=== PATIENT | female | born 1990 | race Caucasian/White ===

== ENCOUNTER 2021-02-17 03:48 | Emergency (ER) | payer MEDICAID, SELFPAY ==
[2021-02-17 03:50] VITALS: BP 104/70; PULSE 99; RESP 21; O2SAT 97; BMI 24.0
[2021-02-17 04:30] VITALS: BP 104/70; PULSE 102; O2SAT 96
--- NOTE | 2021-02-17 04:42 | CT_ITS ---
PROCEDURE INFORMATION: Exam: CT Abdomen And Pelvis With Contrast Exam date and time: 02/17/2021 4:42 AM Age: 30 years old Clinical indication: Other: Covid; Additional info: Covid, epigastric pain TECHNIQUE: Imaging protocol: Computed tomography of the abdomen and pelvis with contrast. Radiation optimization: All CT scans at this facility use at least one of these dose optimization techniques: automated exposure control; mA and/or kV adjustment per patient size (includes targeted exams where dose is matched to clinical indication); or iterative reconstruction. Contrast material: ISOVUE; Contrast volume: 70 ml; Contrast route: IV; COMPARISON: ABDPELW/O CT ABD PELVIS W/O CONTRAST 04/04/2017 1:36 PM FINDINGS: Lungs: See chest CT report for additional details. Liver: Few hypodense lesions, up to 2.3 cm, indeterminate by CT criteria. Gallbladder and bile ducts: No calcified stones. No ductal dilation. Pancreas: Unremarkable. No ductal dilation. Spleen: No splenomegaly. Adrenal glands: No mass. Kidneys and ureters: Several too small to characterize lesions within kidneys (<1 cm). Probable 1.2 cm RIGHT renal cyst. 1.0 lesion within RIGHT kidney, indeterminate by CT criteria. Few punctate calculi within kidneys. No significant hydronephrosis. Stomach and bowel: No definite mural thickening. No obstruction. Appendix: Appendectomy. Intraperitoneal space: No significant fluid collection. No definite free air. Vasculature: Retroaortic LEFT renal vein. No aneurysm. Lymph nodes: No pathologically enlarged lymph nodes. Urinary bladder: Unremarkable. Reproductive: IUD. Bones/joints: 0.7 cm spiculated sclerotic lesion within LEFT ilium, new in interval. No acute fracture. Soft tissues: Unremarkable. IMPRESSION: 1. No definite acute intraabdominal abnormality. 2. Liver lesions, incompletely characterized. Recommend nonemergent MRI. 3. RIGHT kidney lesion, incompletely characterized. Recommend nonemergent MRI. 4. Sclerotic lesion within pelvis, indeterminate. Recommend nonemergent bone scan. COMMENTS: Consistent with the [employer]'s Incidental Findings Committee white paper (J Am Christine Radiol 2018): Any incidental renal lesion less than 1 cm or classified as too small to characterize, or any incidental cystic renal lesion characterized as simple-appearing, is likely benign. No follow-up imaging is recommended for these lesions per consensus recommendations based on imaging criteria.
--- NOTE | 2021-02-17 04:42 | CT_ITS ---
PROCEDURE INFORMATION: Exam: CTA Chest With Contrast Exam date and time: 02/17/2021 4:42 AM Age: 30 years old Clinical indication: Cough and shortness of breath; Additional info: Covid, SOA, cough TECHNIQUE: Imaging protocol: Computed tomographic angiography of the chest with contrast. 3D rendering (Not supervised by radiologist): None. Radiation optimization: All CT scans at this facility use at least one of these dose optimization techniques: automated exposure control; mA and/or kV adjustment per patient size (includes targeted exams where dose is matched to clinical indication); or iterative reconstruction. Contrast material: ISO 370; Contrast volume: 70 ml; Contrast route: INTRAVENOUS (IV); COMPARISON: CR CXR2V XR chest 2V 07/12/2018 1:39 PM FINDINGS: Pulmonary arteries: No pulmonary embolism. Aorta: Unremarkable. No aneurysm. Thyroid: Few subcentimeter nodules. Lungs: No consolidation. Pleural spaces: Trace to small bilateral pleural effusions. No pneumothorax. Heart: No cardiomegaly. No pericardial effusion. Lymph nodes: No pathologically enlarged lymph nodes. Bones/joints: No acute fracture. Soft tissues: Unremarkable. Upper abdomen: See abdomen CT report for additional details. IMPRESSION: No CT evidence of pulmonary embolism. COMMENTS: Consistent with the [employer]'s Incidental Findings Committee white paper (J Am Christine Radiol 2015): In patients under 35 years old with an incidental thyroid nodule equal to or greater than [address], MRI or extrathyroidal US, further evaluation with dedicated thyroid US is recommended for patients with normal life expectancy and without comorbidities. For smaller nodules without suspicious features, no further evaluation or follow up is recommended.
[2021-02-17 04:49] LABS: Basophils # 0.1 K/mm3 (0-0.2); Basophils % 0.7 % (0.1-2.0); Eosinophils % 0.4 % (0.1-12.0); Hemoglobin 13.7 g/dL (12.2-16.2); Lymphocytes # 1.8 K/mm3 (0.7-4.5); Lymphocytes % 22.3 % (10-50); Mean Corpuscular HGB Conc 34.3 g/dL (31.8-35.4); Mean Corpuscular Hemoglobin 29.8 pg (27.0-31.2); Mean Corpuscular Volume 86.9 fl (81-99); Mean Platelet Volume 7.9 fl (7.4-10.4); Monocytes # 0.6 K/mm3 (0.1-1.0); Monocytes % 7.3 % (1.7-9.3); Neutrophils # 5.6 K/mm3 (1.8-7.8); Neutrophils % 69.3 % (37.0-80.0); Platelet Count 241 K/mm3 (142-424); Red Cell Distribution Width 13.1 % (11.5-17.5); White Blood Count 8.1 K/mm3 (4.8-10.8)
[2021-02-17 04:55] LABS: Alanine Aminotransferase 25 U/L (12-78); Albumin/Globulin Ratio 1.5 (1.1-1.8); Alkaline Phosphatase 67 U/L (38-126); Amylase 35 U/L (30-110); Anion Gap 14.2 mEq/L (5-15); Aspartate Amino Transferase 26 U/L (14-36); Bilirubin,Total 0.5 mg/dl (0.2-1.3); Blood Urea Nitrogen 4 mg/dl (7-17); Calcium 8.1 mg/dl (8.4-10.2); Carbon Dioxide 24 mmol/L (22.0-30.0); Chloride 104 mmol/L (98-107); Creatinine Clearance Estimated 134 mL/min (50-200); Estimated Glomerular Filt Rate 117 ml/min (>60); GFR (African American) 142 ML/MIN (>60); Globulin 2.7 g/dL (1.3-3.2); Glucose 126 mg/dl (74-100); Lipase 25 U/L (23-300); Potassium 3.2 mmoL/L (3.5-5.1); Sodium 139 mmol/L (136-145); Total Protein,Serum 6.7 g/dl (6.3-8.2)
[2021-02-17 04:58] LABS: HCG Qualitative, Serum Negative (Negative)
[2021-02-17 05:00] VITALS: BP 111/78; PULSE 97; O2SAT 99
[2021-02-17 05:00] LABS: C-Reactive Protein 44.9 mg/L (0-4)
[2021-02-17 05:35] VITALS: BP 106/73; PULSE 90; O2SAT 100
[2021-02-17 06:02] LABS: Erythrocyte Sedimentation Rate 46 mm/hr (0-20)
--- NOTE | 2021-02-17 06:35 | [facility].EDSOB ---
ED Disposition Clinical Impression: COVID-19 Disposition: Home, Self-Care Condition on Discharge: Good Instructions: DI for COVID-19 (Suspected or Confirmed ) Additional Instructions: fluids and call pcp this am Referrals: Rubia Hoover [Primary Care Provider] - - Critical Care Critical Care Time: No Attestation: On 02/17/21, the high probability of a clinically significant, sudden or life threatening deterioration of the following system(s) required my full and direct attention, intervention and personal management. The time I documented below is in addition to time spent performing reported procedures but includes the following listed in this critical care notation. Medical Decision Making - Medical Records Medical records reviewed: Yes: I reviewed the patient's medical records. - Emile Inquiry Pt receiving controlled substance: No Vital Signs: 02/17/21 03:50 02/17/21 04:30 02/17/21 05:00 Temperature Source Oral Pulse Rate 102 H 97 H Pulse Rate [Right] 99 H Respiratory Rate 21 Blood Pressure 104/70 L 111/78 Blood Pressure [Right Arm] 104/70 L Blood Pressure Mean [Right Arm] 81 Blood Pressure Source [Right Arm] Automatic Cuff 02 Sat by Pulse Oximetry 97 96 99 Oxygen Delivery Method Room Air Room Air Room Air 02/17/21 05:35 Temperature Source Pulse Rate 90 Pulse Rate [Right] Respiratory Rate Blood Pressure 106/73 L Blood Pressure [Right Arm] Blood Pressure Mean [Right Arm] Blood Pressure Source [Right Arm] 02 Sat by Pulse Oximetry 100 Oxygen Delivery Method Room Air - Lab Data Lab results reviewed: Yes: I reviewed the patient's lab results. Lab Results 02/17/21 04:20: WBC 8.1, RBC 4.60, Hgb 13.7, Hct 40.0, MCV 86.9, MCH 29.8, MCHC 34.3, RDW 13.1, Plt Count 241, MPV 7.9, Neut % (Auto) 69.3, Lymph % (Auto) 22.3, Gilmer % (Auto) 7.3, Eos % (Auto) 0.4, Baso % (Auto) 0.7, Neut # (Auto) 5.6, Lymph # (Auto) 1.8, Gilmer # (Auto) 0.6, Eos # (Auto) 0.0, Baso # (Auto) 0.1, ESR 46 H 02/17/21 04:20: Sodium 139, Potassium 3.2 L, Chloride 104, Carbon Dioxide 24, Anion Gap 14.2, BUN 4 L, Creatinine 0.60, Estimated Creat Clear 134, Estimated GFR 117, Est GFR ( Amer) 142, Glucose 126 H, Calcium 8.1 L, Total Bilirubin 0.5, AST 26, ALT 25, Alkaline Phosphatase 67, C-Reactive Protein 44.9 H, Total Protein 6.7, Albumin 4.0, Globulin 2.7, Albumin/Globulin Ratio 1.5, Amylase 35, Lipase 25, Procalcitonin 0.040 02/17/21 04:20: Serum HCG, Qual Negative Result diagrams: 02/17/21 04:20 02/17/21 04:20 Orders (Tests/Meds): ED MEDICATIONS Generic Name Dose Route Start Last Admin Trade Name Freq PRN Reason Stop Dose Admin Sodium Chloride 1,000 mls @ 999 mls/hr 02/17/21 04:45 02/17/21 04:30 Sod Chlor 0.9% 1000ml Bag IV 02/17/21 05:45 999 mls/hr .Q1H1M KAILA Administration Discontinued Medications Generic Name Dose Route Start Last Admin Trade Name Freq PRN Reason Stop Dose Admin Dexamethasone Sodium Phosphate 10 mg 02/17/21 04:43 02/17/21 05:15 Dexamethasone 4mg/Ml 5ml Mdv IV 02/17/21 04:44 10 mg ONCE ONE Administration Iopamidol 70 ml 02/17/21 05:41 02/17/21 05:42 Iopamidol-370 (76%);100ml Bottle IV 02/17/21 05:42 70 ml ONCE ONE Administration Ondansetron HCl 4 mg 02/17/21 04:43 02/17/21 05:15 Ondansetron 4mg/2ml Vial IV 02/17/21 04:44 4 mg ONCE ONE Administration Sodium Chloride 50 ml 02/17/21 05:41 02/17/21 05:42 0.9 % Sodium Chloride 50 Ml Vial IV 02/17/21 05:42 50 ml ONCE ONE Administration Sodium Chloride 10 ml 02/17/21 05:41 02/17/21 05:42 Sodium Chloride 0.9% 10ml Syr (Rad Only) IV 02/17/21 05:42 10 ml ONCE ONE Administration ORDERS Category Date Time Status Urinalysis and Microscopic Stat Lab 02/17/21 04:42 Ordered - CT Data CT Scan: Abdomen, Pelvis, Chest Time Received: 06:[address] Reviewed: Yes: I have viewed the radiologist's interpretation Preliminary Findings: Normal/NAD Medical
[2021-02-17 06:42] VITALS: BP 97/60; PULSE 86; RESP 17; TEMP 36.8; O2SAT 96
[2021-02-17 06:51] LABS: Appearance,Urine SL CLOUDY (Clear); Bilirubin,Urine Negative (Negative); Blood, Urine 2+ (Negative); Color,Urine ORANGE (Yellow); Glucose,Urine (UA) Negative (Negative); Ketones,Urine Negative (Negative); Leukocyte Esterase,Urine 3+ (Negative); Microscopic, Urine URINE MICROSCOPIC (MICROSCOPIC); Nitrate,Urine POSITIVE (Negative); PH,Urine 6.5 (5.0-8.5); Protein,Urine 2+ (Negative)
[2021-02-17 06:57] LABS: Bacteria,Urine 1+ /lpf
== END 2021-02-17 06:53 | disposition home or self-care (01) ==
PROVIDERS: Emergency Provider Emergency Medicine; PCP Nurse Practitioner Family
DX: U07.1 COVID-19 (principal)
CPT/HCPCS: 71275; 74177; 80053; 81001; 82150; 83690; 84145; 84703; 85025; 85651; 86140; 87086; 96365; 96375; 99283; J2405; Q9967

== ENCOUNTER 2025-01-10 15:55 | Emergency (ER) | payer BC, SELFPAY ==
--- OUTSIDE RECORDS SUMMARY | 2024-11-26 12:40 | XMS_ITS | Encounter Summary ---
Author Organization [facility] Address [address] [place] [address] Care Team Providers Care Mobile Disc Jockey Name Role Phone Lisseth Rivera MD Primary Care Provider [phone] Reason for Visit * Reason Comments Rectal Bleeding Headache X 2 days Encounter Details Date Type Department Care Team (Late st Contact Info) Description 11/26/2024 12:40 PM EDT Office Visit [facility] [address] [place] [address] Kasey Mckenzie, ASSEMBL[employer], DNP [address] [place] [address] Other fatigue (Primary Dx); Blood in stool; Anal fissure; Allergic rhinitis, unspecified seasonality, unspecified trigger Social History Tobacco Use Types Packs/Day Years Used Date Smoking Tobacco: Never Passive Smoke Exposure: Never Smokeless Tobacco: Never Tobacco Cessation:Counseling Given: Not Answered Alcohol Use Standard Drinks/Week Comments No 0 (1 standard drink = 0.6 oz pur e alcohol) Humiliation, Afraid, Rape, and Kick questionnair e Answer Date Recorded Within the last year, have y ou been afraid of your partner or ex-partner? No 11/26/2024 Within the last year, have y ou been humiliated or emotionally abused in other ways by your partner or ex-partner? No Within the last year, have y ou been kicked, hit, slapped, or otherwise physically hurt by your partner or ex-partner? No 11/26/2024 Within the last year, have y ou been raped or forced to have any kind of sexual activity by your partner or ex-partner? No 11/26/2024 PHQ-2 Answer Date Recorded Patient Health Questionnaire-2 Score 3 08/15/2024 Hunger Vital Sign Answer Date Recorded Within the past 12 months, y ou worried that your food would run out before you got the money to buy more. Never true 11/27/19 25 Within the past 12 months, t he food you bought just didn't last and you didn't have money to get more. Never true 11/26/2024 PRAPARE - Transportation Answer Date Re corded In the past 12 months, has l ack of transportation kept you from medical appointments or from getting medications? No 11/08 In the past 12 months, has l ack of transportation kept you from meetings, work, or from getting things needed for daily living? No 11/26/2024 Housing Stability Vital Sign Answer Collin e Recorded In the last 12 months, was t here a time when you were not able to pay the mortgage or rent on time? No 02/29/2024 In the last 12 months, how many places have you lived? 1 02/29/2024 In the last 12 months, was t here a time when you did not have a steady place to sleep or slept in a prison (including now)? No 02/29/2024 PHQ-9 Answer Date Recorded Patient Health Questionnaire-9 Score 9 08/15/2024 Housing Stability Vital Sign Answer Collin e Recorded In the last 12 months, was t here a time when you were not able to pay the mortgage or rent on time? No 11/26/2024 In the past 12 months, how m any times have you moved where you were living? 0 11/26/2024 At any time in the past 12 m [facility], were you homeless or living in a prison (including now)? No 11/26/2024 Utilities Answer Date Recorded In the past 12 months has th e electric, gas, oil, or water company threatened to shut off services in your home? No 11/26/2024 Comments No Sex and Gender Information Value Date Recorded Sex Assigned at Not on file Legal Sex Female 7:52 PM EDT Gender Identity Not on file Sexual Orientation Not on file documented as of this encounter Last Filed Vital Signs Vital Sign Reading Time Taken Comments Blood Pressure 116/80 11/26/2024 12:41 PM EDT Pulse 88 11/26/2024 12:41 PM EDT Temperature 37 C (98.6 F) 11/26/2024 12:41 PM EDT Respiratory Rate 14 11/26/2024 12:41 PM EDT Oxygen Saturation 99% 11/26/2024 12:41 PM EDT Inhaled Oxygen Concentration - - Weight 74.1 kg (163 lb 5.8 oz) 11/26/2024 12:41 PM EDT Height 160 cm (5' 3 ) 11/26/2024 12:41 PM EDT Body Mass Index 28.94 11/26/2024 12:41 PM EDT documented in this encounter Functional Status * Calculated C-SSRS Risk Score (Lifetime/Recent) Answer Date of Assessment Author No Risk Indicated 11/26/2024 12:42 PM EDT Mala Hoover * Question Answer Date of Assessment Author 1. Wish to be (Past 1 Month) No 025 12:42 PM EDT Mala Hoover 2. Non-Specific Active Suici sam Thoughts (Past 1 Month) No 11/26/2024 12:42 PM EDT Mala Hoover 6. Suicidal Behavior (Lifetime) No 12:42 PM EDT Mala Hoover documented as of this encounter Miscellaneous Notes * Progress Notes - Kasey Mckenzie, ASSEMBLER [employer], DNP - 11/26/2024 12:40 PM EDT Subjective VyYadira Foster Rectal Bleeding Associated symptoms include headaches. Headache Ms. Foster says she had knee surgery and has had congestion since then. Patient says her knee surgery was november 12. Patient denies body aches, chills, or fever. Patient has had nasal congestion and post nasal drip. Patient has been using claritin. Patient says that she has been fatigued since surgery. She is concerned maybe her thyroid is off. Patient has been taking more naps than normal. Patient says she has had headache last two days. Patient says yesterday she had a bowel movement and had blood in her stool. Patient says she is bleeding from rectum. Patient denies issues with constipation. Patient denies large bowel movement that could have triggered. Patient does not complain of itching.Patient denies any pain in area. Medical History[1] Family History[2] Surgical History[3] Social History Socioeconomic History Marital status: Single Spouse name: Not on file Number of children: Not on file Years of education: Not on file Highest education level: Not on file Occupational History Not on file Tobacco Use Smoking status: Never Passive exposure: Never Smokeless tobacco: Never Vaping Use Vaping status: Never Used Substance and Sexual Activity Alcohol use: No Drug use: Never Comment: Drug use: No drug use Sexual activity: Yes Partners: Male control/protection: Female Sterilization Comment: Tubal removal Other Topics Concern Not on file Social History Narrative Not on file Social Drivers of Health Financial Resource Strain: Not on file Food Insecurity: No Food Insecurity (11/26/2024) Hunger Vital Sign Worried About Running Out of Food in the Last Year: Never true Ran Out of Food in the Last Year: Never true Transportation Needs: No Transportation Needs (11/26/2024) PRAPARE - Transportation Lack of Transportation (Medical): No Lack of Transportation (Non-Medical): No Physical Activity: Not on file Stress: Not on file (05/14/2024) Social Connections: Not on file Intimate Partner Violence: Not At Risk (11/26/2024) Humiliation, Afraid, Rape, and Kick questionnaire Fear of Current or Ex-Partner: No Emotionally Abused: No Physically Abused: No Sexually Abused: No Housing Stability: Low Risk (11/26/2024) Housing Stability Vital Sign Unable to Pay for Housing in the Last Year: No Number of Times Moved in the Last Year: 0 Homeless in the Last Year: No Medications Ordered Prior to Encounter[4] Allergies[5] Health Maintenance Due Topic Date Due UKY-Varicella Vaccines (1 of - 13+ 2-dose series) Never done [id number] Vaccine (2023- season) Never done The following portions of the patient's chart were reviewed in this encounter and updated as appropriate: past medical history, surgical history, family history, tobacco history, allergies, and medications A 14-point review of systems was completed with pertinent positives and negatives outlined above. Objective Vitals: 11/26/24 1241 BP: 116/80 Pulse: 88 Resp: 14 Temp: 37 ??C (98.6 ??F) SpO2: 99% Physical Exam Exam conducted with a warehouse driver present. Constitutional: Appearance: Normal appearance. Cardiovascular: Rate and Rhythm: Normal rate and regular rhythm. Pulses: Normal pulses. Heart sounds: Normal heart sounds. Pulmonary: Effort: Pulmonary effort is normal. Breath sounds: Normal breath sounds. Abdominal: General: Abdomen is flat. Bowel sounds are normal. Palpations: Abdomen is soft. Tenderness: There is no right CVA tenderness or left CVA tenderness. Genitourinary: Rectum: Anal fissure present. Comments: Blood from rectum Neurological: Mental Status: She is alert and oriented to person, place, and time. Psychiatric: Mood and Affect: Mood normal. Behavior: Behavior normal. Thought Content: Thought content normal. Judgment: Judgment normal. Assessment/Plan 1. Other fatigue (Primary) Will draw labs today to further evaluation. Will treat according to labs. - Comprehensive Metabolic Panel, Plasma - CBC and Differential - TSH - T4, free - Vitamin D 25 Hydroxy - Vitamin B12, Serum 2. Blood in stool Will check CBC. There is darien blood. I feel likely due to fissure. If blood persists will refer toGI for possible colonoscopy - Comprehensive Metabolic Panel, Plasma - CBC and Differential 3. Anal fissure Encouraged eating bland diet with fiber to prevent constipation. Patient may use sitz bath. If develops issues with constipation encouraged use of stool softener and increase hydration. 4. Allergic rhinitis, unspecified seasonality, unspecified trigger Educated on risks/benefits of medication. Will increase hydration. May use humidifier. - Chlorcyclizine-Pseudoephed (Stahist AD) 25-60 MG tablet; Take 1 tablet by mouth every 8 hours as needed (congestion) for up to 7 days. Dispense: 21 tablet; Refill: 0 - fluticasone (Flonase) 50 MCG/ACT nasal spray; Administer 1 spray into each nostril daily. Shake gently. Before first use, prime pump. After use, clean tip and replace cap. Dispense: 16 g; Refill: 0 Kasey Prateek Hollison, ASSEMBLER CON[employer], DOMITILA [1] Past Medical History: Diagnosis Date Anemia Anxiety Depression Ganglion, unspecified site Ganglion GERD (gastroesophageal reflux disease) Liver disease, unspecified Liver lesion, right lobe Personal history of other diseases of the digestive system History of chronic constipation Personal history of other diseases of the digestive system History of gastroesophageal reflux (GERD) Personal history of other diseases of urinary system History of pyelonephritis [2] Family History Problem Relation Name Age of Onset Cancer Mother Hannah Depression Mother Hannah Mental illness Mother Hannah Miscarriages / Stillbirths Mother Hannah Miscarriages / Stillbirths Sister Trudy Asthma Brother Jeff Bipolar disorder Other Colon cancer Other Hyperlipidemia Other Anesthesia problems Neg Hx Malig Hyperthermia Neg Hx [3] Past Surgical History: Procedure Laterality Date APPENDECTOMY N/A Appendectomy from [facility] BREAST LUMPECTOMY Right Right Breast Lumpectomy from [facility] KIDNEY SURGERY N/A Kidney Surgery from [facility] MYRINGOTOMY W/ TUBES N/A Ear Pressure Equalization Tube, Insertion from [facility] OTHER SURGICAL HISTORY N/A Laparoscopy (Diagnostic) from [facility] OTHER SURGICAL HISTORY N/A History of myringotomy from [facility] OTHER SURGICAL HISTORY right shoulder surgery TONSILLECTOMY N/A Tonsillectomy from [facility] TUBAL LIGATION Bilateral [4] Current Outpatient Medications on File Prior to Visit Medication Sig Dispense Refill acetaminophen (Tylenol Extra Strength) 500 MG tablet if needed. amitriptyline (Elavil) 25 MG tablet Take 1 tablet (25 mg) by mouth every night. 30 tablet 11 Aspirin Low Dose 81 MG EC tablet Take 1 tablet by mouth 1 time. cetirizine (EQ Allergy Relief, Cetirizine,) 10 MG tablet Take 1 tablet (10 mg) by mouth 1 (one) time each day. 90 tablet 2 levothyroxine (Synthroid) 100 MCG tablet Take 1 tablet (100 mcg) by mouth every morning. 30 tablet 3 naloxone (Narcan) 4 mg/0.1 mL nasal spray 1. Give 1 spray in nostril for no/slow breathing or cannot wake after opioid use 2. Call 911 3. Repeat in other nostril if symptoms continue 1 each 0 omeprazole (PriLOSEC) [address] capsule Take 1 capsule (20 mg) by mouth 1 (one) time each day. Do not crush or chew. 90 capsule 2 diphenhydrAMINE (Benadryl) 50 MG tablet Take one tablet 1 hour before contrast injection (Patient not taking: Reported on 11/26/2024) 1 tablet 0 ergocalciferol 1.25 MG (00107 UT) capsule Take 1 capsule by mouth once a week (Patient not taking: Reported on 11/26/2024) 4 capsule 0 ketoconazole (NIZOral) 2 % cream APPLY CREAM TOPICALLY TWICE DAILY FOR 28 DAYS (Patient not taking:Reported on 11/26/2024) 30 g 0 oxyCODONE (Roxicodone) 5 MG immediate release tablet Take 1 tablet (5 mg) by mouth every 6 (six) hours if needed for severe pain. (Patient not taking: Reported on 11/26/2024) 20 tablet 0 No current facility-administered medications on file prior to visit. [5] Allergies Allergen Reactions Cinnamon Anaphylaxis Iodinated Contrast Media Swelling and Vomiting Meperidine Hcl Vomiting Vomiting Aspirin Unknown - Patient states they do not know rxn details Ibuprofen Other - please document in the comment field and Unknown - Patient states they do not know rxn details patient reports tingling in hands and intolerance Iv Contrast Other - please document in the comment field Iodinated contrast- mouth swelling, vomiting Morphine And Codeine Unknown - Patient states they do not know rxn details Hives and itching Vancomycin Hcl Rash vancomycin - blisters documented in this encounter Plan of Treatment Upcoming Encounters Date Type Department Care Team (Late st Contact Info) Description 01/15/2025 9:00 AM EDT Office Visit [facility] [address] [place] [address] Lisseth Rivera MD [address] [place] [address] 02/19/2025 11:00 AM EDT Procedure Visit Obstetrics & Gynecology [address] [place] [address] Antonia Hugo APRN, CN [address] [place] [address] documented as of this encounter Procedures Procedure Name Priority Date/Time Associated Diagnosis Comments VITAMIN D 25 HYDROXY Routine 11/26/2024 1:33 PM EDT Other fatigue CBC WITH AUTO DIFFERENTIAL Routine 11/26/2024 1:33 PM EDT Other fatigue Blood in stool TSH Routine 11/26/2024 1:33 PM EDT Other fatigue FREE T4, PLASMA Routine 11/26/2024 1:33 PM EDT Other fatigue VITAMIN B12, SERUM Routine 11/26/2024 1: 33 PM EDT Other fatigue COMPREHENSIVE METABOLIC PANEL, PLASMA Routine 11/26/2024 1:33 PM EDT Other fatigue Blood in stool documented in this encounter Results * Vitamin B12, Serum (11/26/2024 1:33 PM EDT) Vitamin B12, Serum 487 210 - 1,033 pg/mL 11/26/2024 6:29 PM EDT [facility] Blood Venous blood specimen / Unknown Venipuncture / Unknown 11/26/2024 1:33 PM EDT 11/26/2024 1:33 PM EDT us Kasey Mckenzie APRN, DNP LAB BLOOD ORDERABLES Final Result [facility] [address] [place] [address] * Vitamin D 25 Hydroxy (11/26/2024 1:33 PM EDT) Vitamin D 25 Hydroxy 24.4 20.0 - 80.0 ng/mL 11/26/2024 6:56 PM EDT [facility] Blood Venous blood specimen / Unknown Venipuncture / Unknown 11/26/2024 1:33 PM EDT 11/26/2024 1:33 PM EDT Narrative [facility] - 11/26/2024 6:56 PM EDT Testing performed on [employer], standardized against NIST SRM 2972. When testing samples from patients whose predominant form of vitamin D is vitamin D2, such as patients receiving vitamin D2 supplementation, results that are subtherapeutic should be confirmed with another method, such as LC-MS/MS, before being used for patient management. Vitamin D, 25-Hydroxy reference range, age 18 years and up: Deficiency: <12 ng/mL Insufficiency: 12 to 19 ng/mL Sufficiency: 20 to 80 ng/mL Possible toxicity: >100 ng/mL Kasey Mckenzie APRN, DOMITILA LAB BLOOD ORDERABLES Final Result Performing Organization Address [facility] [place] [address] * T4, free (11/26/2024 1:33 PM EDT) Free T4, Plasma 1.5 0.8 - 1.7 ng/dL 11/26/2024 6:15 PM EDT [facility] Blood Venous blood specimen / Unknown Venipuncture / Unknown 11/26/2024 1:33 PM EDT 11/26/2024 1:33 PM EDT Narrative [facility] - 11/26/2024 6:15 PM EDT Free T4 Trimester Specific Ranges 1st Trimester 0.9 - 1.50 ng/dL 2nd Trimester 0.7 - 1.40 ng/dL 3rd Trimester 0.7 - 1.24 ng/dL us Kasey Mckenzie APRN, DOMITILA LAB BLOOD ORDERABLES Final Result [facility] [address] [place] [address] * TSH (11/26/2024 1:33 PM EDT) Thyroid Stimulating Hormone, Plasma 3.12 0.40 - 4.20 uIU/mL 11/26/2024 6:15 PM EDT [facility] Blood Venous blood specimen / Unknown Venipuncture / Unknown 11/26/2024 1:33 PM EDT 11/26/2024 1:33 PM EDT Narrative [facility] - 11/26/2024 6:15 PM EDT Trimester Specific Ranges TSH ( IU/mL) 1st Trimester 0.1 - 3.0 2nd Trimester 0.19 - 4.06 3rd Trimester 0.3 - 3.7 us Kasey Mckenzie ASSEMBLER [employer], DNP LAB BLOOD ORDERABLES Final Result [facility] [address] [place] [address] * CBC and Differential (11/26/2024 1:33 PM EDT) WBC Count 8.09 3.70 - 10.30 10*3/uL LAB HEMATOLOGY METHOD 11/26/2024 6:03 PM EDT [facility] RBC Count 4.56 3.90 - 5.20 10*6/uL LAB HEMATOLOGY METHOD 11/26/2024 6:03 PM EDT [facility] HGB 13.6 11.2 - 15.7 g/dL LAB HEMATOLOGY METHOD 11/26/2024 6:03 PM EDT [facility] HCT 41.8 34.0 - 45.0 % LAB HEMATOLOGY METHOD 11/26/2024 6:03 PM EDT [facility] Platelet Count 343 155 - 369 10*3/uL LAB HEMATOLOGY METHOD 11/26/2024 6:03 PM EDT [facility] MCV 92 79 - 98 fL LAB HEMATOLOGY METHOD 11/26/2024 6:03 PM EDT [facility] MCH 29.8 26.0 - 32.0 pg LAB HEMATOLOGY METHOD 11/26/2024 6:03 PM EDT [facility] MCHC 32.5 30.7 - 35.5 g/dL LAB HEMATOLOGY METHOD 11/26/2024 6:03 PM EDT [facility] RDW 12.4 11.5 - 14.5 % LAB HEMATOLOGY METHOD 11/26/2024 6:03 PM EDT [facility] MPV 9.4 8.8 - 12.5 fL LAB HEMATOLOGY METHOD 11/26/2024 6:03 PM EDT [facility] nRBC 0.0 <=0.0 per 100 WBCs LAB HEMATOLOGY METHOD 11/26/2024 6:03 PM EDT [facility] Differential Type Automated LAB HEMATOLOGY METHOD 11/26/2024 6:03 PM EDT [facility] Neutrophils % 63 % LAB HEMATOLOGY METHOD 11/26/2024 6:03 PM EDT [facility] Lymphocytes % 28 % LAB HEMATOLOGY METHOD 11/26/2024 6:03 PM EDT [facility] Monocytes % 5 % LAB HEMATOLOGY METHOD 11/26/2024 6:03 PM EDT [facility] Eosinophils % 3 % LAB HEMATOLOGY METHOD 11/26/2024 6:03 PM EDT [facility] Basophils % 1 % LAB HEMATOLOGY METHOD 11/26/2024 6:03 PM EDT [facility] Immature Granulocytes % 0 % LAB HEMATOLOGY METHOD 11/26/2024 6:03 PM EDT [facility] Neutrophils Absolute 5.14 1.60 - 6.10 10*3/uL LAB HEMATOLOGY METHOD 11/26/2024 6:03 PM EDT [facility] Lymphocytes Absolute 2.26 1.20 - 3.90 10*3/uL LAB HEMATOLOGY METHOD 11/26/2024 6:03 PM EDT [facility] Monocytes Absolute 0.39 0.30 - 0.90 10*3/uL LAB HEMATOLOGY METHOD 11/26/2024 6:03 PM EDT [facility] Eosinophils Absolute 0.20 0.00 - 0.50 10*3/uL LAB HEMATOLOGY METHOD 11/26/2024 6:03 PM EDT [facility] Basophils Absolute 0.07 0.00 - 0.10 10*3/uL LAB HEMATOLOGY METHOD 11/26/2024 6:03 PM EDT [facility] Immature Granulocytes Absolute 0.03 0.00 - 0.06 10*3/uL LAB HEMATOLOGY METHOD 11/26/2024 6:03 PM EDT [facility] Blood Venous blood specimen / Unknown Venipuncture / Unknown 11/26/2024 1:33 PM EDT 11/26/2024 1:33 PM EDT Narrative [facility] - 11/26/2024 6:03 PM EDT Therapeutic decision making should be based on absolute values, rather than percentages. us Kasey Mckenzie [employer]SEMBL[employer], DNP LAB BLOOD ORDERABLES Final Result [facility] [address] [place] [address] * (ABNORMAL) Comprehensive Metabolic Panel, Plasma (11/26/2024 1:33 PM EDT) Glucose, Plasma 83 74 - 99 mg/dL 11/26/2024 6:15 PM EDT [facility] BUN, Plasma 10 7 - 21 mg/dL 11/26/2024 6:15 PM EDT [facility] Creatinine, Plasma 0.68 0.60 - 1.10 mg/dL 11/26/2024 6:15 PM EDT [facility] BUN/Creatinine Ratio 15 11/26/2024 6:15 PM EDT [facility] Sodium, Plasma 140 136 - 145 mmol/L 11/26/2024 6:15 PM EDT [facility] Potassium, Plasma 3.3(L) 3.6 - 4.9 mmol/L 11/26/2024 6:15 PM EDT [facility] Chloride, Plasma 102 97 - 107 mmol/L 11/26/2024 6:15 PM EDT [facility] CO2, Plasma 27 22 - 29 mmol/L 11/26/2024 6:15 PM EDT [facility] Anion Gap 11 6 - 16 mmol/L 11/26/2024 6:15 PM EDT [facility] Total Calcium, Plasma 8.9 8.9 - 10.2 mg/dL 11/26/2024 6:15 PM EDT [facility] Total Protein 6.9 6.3 - 7.9 g/dL 11/26/2024 6:15 PM EDT [facility] Albumin, Plasma 4.5 3.5 - 5.2 g/dL 11/26/2024 6:15 PM EDT [facility] AST, Plasma 27 10 - 35 U/L 11/26/2024 6:15 PM EDT [facility] ALT, Plasma 34 10 - 35 U/L 11/26/2024 6:15 PM EDT [facility] Alkaline Phosphatase, Plasma 88 35 - 104 U/L 11/26/2024 6:15 PM EDT [facility] Total Bilirubin, Plasma 0.4 0.2 - 1.1 mg/dL 11/26/2024 6:15 PM EDT [facility] eGFRcr 118.1 mL/min/1.7 3m*2 11/26/2024 6:15 PM EDT [facility] Comment:Reported eGFRcr in m L/min/1.73m2 is based the CKD-EPI 2020 equation that does not use a race coefficient. Blood Venous blood specimen / Unknown Venipuncture / Unknown 11/26/2024 1:33 PM EDT 11/26/2024 1:33 PM EDT us Kasey Mckenzie APRN, DNP LAB BLOOD ORDERABLES Final Result [facility] [address] [place] [address] documented in this encounter Visit Diagnoses Diagnosis Other fatigue- Primary Blood in stool Anal fissure Allergic rhinitis, unspecified seasonality, unspecified trigger documented in this encounter Additional Health Concerns Assessment Noted Time PHQ-9 Depression Total Score: 9 08/15/19 2:12 PM EST A fall risk assessment has been complete d for the patient 02/16/2024 9:50 AM EDT A Body Mass Index follow-up plan has been documented for the patient 11/26/2024 1:33 PM EDT documented as of this encounter Care Teams Mobile Disc Jockey Relationship Specialty Start Date End Date Lisseth Rivera MD [address] [place] [id number] PCP - General 08/15/24 documented as of this encounter
[2025-01-10] VITALS (8 sets, daily range): BP systolic 120–125; BP diastolic 84–99; PULSE 64–100; RESP 16; TEMP 36.4–36.9; O2SAT 99–100; BMI 28.3
[2025-01-10 16:13] LABS: Microscopic, Urine URINE MICROSCOPIC (MICROSCOPIC)
--- NOTE | 2025-01-10 16:18 | ED_ITS ---
<Statement entered by Karolyn Peralta DO - 01/10/25 20:41> I was consulted by the BRODY, and we discussed the complexity of the problems being addressed. I approved the treatment and management plan for this patient's care in the emergency department, thus performing a substantive portion of the medical decision making. Karolyn Peralta DO Discharge Plan Disposition Patient Disposition: Home, Self-Care Referrals Follow up/Referrals: Rubia Hoover [Primary Care Provider, Medical] - See instructions Activity Restrictions/Add. Instructions Additional Instructions/Restrictions: Today you were evaluated in the emergency department. I feel that you have a stomach virus. Your CT scan shows that you have multiple liver lesions, please follow-up with your PCP as you may need to have these ultrasound for further evaluation. You also have a right sided kidney stone that is 5 mm. You also have a left sided ovarian cyst. Keep please keep your appointment with OB. If your condition worsens at all, please return to the ED immediately. Clinical Impressions Clinical Impression: Lesion of liver, Ovarian cyst, Kidney stone, Acute viral syndrome Instructions Patient Instructions: DI for Acute Pain -- Adult Print Language Print Language: Icelandic Discharge ED Provider: Karolyn Peralta General Adult HPI General Chief complaint: PAIN Stated complaint: Abdominal pain,Right rib pain Time Seen by Provider: 01/10/25 15:58 History of Present Illness HPI narrative: patient is a 34-year-old female PMHx history of migraines and hypothyroidism who presents to the ED for complaints of generalized abdominal pain, nausea, vomiting, diarrhea since Tuesday. She also adds that she has right rib pain for the past several weeks intermittently. Related Data Allergies Allergy/AdvReac Type Severity Reaction Status Date / Time morphine (MORPHINE) Allergy Intermediate Rash Verified 02/17/21 04:48 NSAIDS (Non-Steroidal Allergy Intermediate Numbness Verified 02/17/21 04:48 Anti-Inflamma aspirin (ASPIRIN) Allergy Unknown Numbness Verified 02/17/21 04:48 cinnamon (CINNAMON) Allergy Unknown Verified 06/27/18 13:35 ibuprofen (IBUPROFEN) Allergy Unknown Numbness Verified 02/17/21 04:48 meperidine (From DEMEROL) Allergy Unknown Vomiting Verified 02/17/21 04:48 vancomycin (VANCOMYCIN) Allergy Unknown Verified 06/27/18 13:35 [facility] Disclaimer: The information contained in this section may have been updated after the patient was seen, as this information can be updated by other users. Social History Smoking Status: Never smoker second hand exposure: No alcohol intake: never current occupational status: other Travel in the last 8 weeks?: None housing: apartment current occupational exposures/hazards: No caffeine: Yes Have you lived/traveled outside [place] in past 30 days?: No Contact w/someone who lives/traveled outside US past 30 days?: No Exposure to someone with infectious disease in past 14 days?: No Do you have a fever (greater than 100.4 F or 38 C)?: No Have you tested positive for COVID-19?: No Exposed to someone with COVID-19 in past 14 days?: No Do you have a sore throat?: No Do you have a cough?: No Do you have any weakness?: No Do you have any diarrhea?: No Are you experiencing any unusual bleeding?: No Do you have any muscle aches/pain?: No Do you have any abdominal pain?: No Are you experiencing loss of taste or smell?: No Other Medical History Have you received the Flu Vaccine for this season: Yes Have you received the Pneumonia Vaccine: No ROS Obtained: Yes Systems reviewed as appropriate & no additional complaints except as documented Physical Exam General General appearance: alert and in no apparent distress Head Head exam: atraumatic Eye Eye exam: Present normal appearance and PERRL Neck Neck exam: Present normal inspection and full ROM Chest Chest inspection: Present normal inspection and symmetric chest wall rise Respiratory Respiratory exam: Present normal lung sounds bilaterally Cardiovascular Cardiovascular exam: Present regular rate Abdominal Exam Abdominal exam: Present soft and tenderness Extremities Exam Extremities exam: Present full ROM Back Exam Back exam: Present full ROM Neurological Exam Neurological exam: Present alert and oriented X3 Skin Skin exam: Present dry Medical Decision Making Medical Records Screening: Per USPSTF and CDC recommendations, given the prevalence of disease in our region, it is our hospital?s policy to screen for HIV and viral Hepatitis for all patients aged 18 and over and those with ongoing risk factors. Emile Inquiry Pt receiving controlled substance: No Vital Signs: 01/10/25 15:55 01/10/25 19:00 01/10/25 19:15 Temperature 98.5 F Temperature Source Oral Pulse Rate 71 72 Pulse Rate [Radial] 100 H Respiratory Rate 16 Blood Pressure 123/99 H 123/91 H Blood Pressure [Right Arm] 124/95 H Blood Pressure Mean [Right Arm] 104 Blood Pressure Source [Right Arm] Automatic Cuff Blood Pressure Position [Right Arm] Sitting 02 Sat by Pulse Oximetry 99 100 100 Oxygen Delivery Method Room Air 01/10/25 19:30 Temperature Temperature Source Pulse Rate 64 Pulse Rate [Radial] Respiratory Rate Blood Pressure 125/86 Blood Pressure [Right Arm] Blood Pressure Mean [Right Arm] Blood Pressure Source [Right Arm] Blood Pressure Position [Right Arm] 02 Sat by Pulse Oximetry 100 Oxygen Delivery Method Lab Data Lab Results 01/10/25 16:01: Urine Color Yellow, Urine Appearance Sl cloudy, Urine pH 7.0, Ur Specific [place] 1.015, Urine Protein Negative, Urine Glucose (UA) Negative, Urine Ketones Negative, Urine Blood Negative, Urine Nitrate Negative, Urine Bilirubin Negative, Urine Urobilinogen 0.2, Ur Leukocyte Esterase 1+ A, Urine RBC Occasional, Urine WBC 5-10, Ur Squamous Epith Cells 20-50, Urine Bacteria 4+, Urine Yeast Occasional, Urine HCG, Qual Negative 01/10/25 16:30: WBC 6.9, RBC 4.89, Hgb 14.6, Hct 43.5, MCV 89.0, MCH 29.9, MCHC 33.6, RDW 12.4, Plt Count 320, MPV 9.3, Neut % (Auto) 68.4, Lymph % (Auto) 23.0, [place] % (Auto) 4.7, Eos % (Auto) 2.5, Baso % (Auto) 1.0, Neut # (Auto) 4.7, Lymph # (Auto) 1.6, [place] # (Auto) 0.3, Eos # (Auto) 0.2, Baso # (Auto) 0.1, Sodium 139, Potassium 4.3, Chloride 103, Carbon Dioxide 27, Anion Gap 13.3, BUN 5 L, Creatinine 0.70, Estimated GFR 96, Est GFR ( Amer) 116, Glucose 94, Lactate 1.1, Calcium 9.2, Total Bilirubin 0.5, AST 32, ALT 21, Alkaline Phosphatase 94, Total Protein 7.7, Albumin 4.8, Globulin 2.9, Albumin/Globulin Ratio 1.7, Lipase 57 01/10/25 16:30 01/10/25 16:30 Orders (Tests/Meds): ED MEDICATIONS Generic Name Dose Route Start Last Admin Trade Name Freq PRN Reason Stop Dose Admin Sodium Chloride 10 ml 01/10/25 18:01 01/10/25 18:02 Sodium Chloride 0.9% 10ml Syr (Rad Only) IV 02/09/25 18:00 10 ml NEEDED PRN Administration Maintain IV Site Discontinued Medications Generic Name Dose Route Start Last Admin Trade Name Adela PRN Reason Stop Dose Admin Acetaminophen 1,000 mg 01/10/25 16:20 01/10/25 16:38 Acetaminophen 1,000mg/100ml Vial IV 01/10/25 16:21 1,000 mg ONCE ONE Administration Fentanyl Citrate 50 mcg 01/10/25 19:01 01/10/25 19:09 Fentanyl 100mcg/2ml Vial IV 01/10/25 19:02 50 mcg ONCE ONE Administration Sodium Chloride 500 mls @ 999 mls/hr 01/10/25 16:13 01/10/25 16:38 Sod Chlor 0.9% 1000ml Bag IV 01/10/25 16:43 999 mls/hr .Q31M ONE Administration Iopamidol 75 ml 01/10/25 18:01 01/10/25 18:02 Iopamidol-370 (76%);100ml Bottle IV 01/10/25 18:02 75 ml ONCE ONE Administration Ondansetron HCl 4 mg 01/10/25 16:13 01/10/25 16:37 Ondansetron 4mg/2ml Vial IV 01/10/25 16:14 4 mg ONCE ONE Administration ORDERS Category Date Time Status CT abdomen pelvis w con Stat Cat Scan 01/10/25 17:39 Completed CXR --portable [XR chest portable] Stat Exams 01/10/25 16:23 Completed CBC w/Auto Diff [Complete Blood Count Auto Diff] Stat Lab 01/10/25 16:30 Completed CMP [Comprehensive Metabolic Panel] Stat Lab 01/10/25 16:30 Completed HIV Combo Stat Lab 01/10/25 16:30 Received Hepatitis C Ab Qual. W/ RFX Stat Lab 01/10/25 16:30 Received Lactic Acid Stat Lab 01/10/25 16:30 Completed Lipase Stat Lab 01/10/25 16:30 Completed UA [Urinalysis and Microscopic] Stat Lab 01/10/25 16:01 Completed Urine , HCG Qual. Stat Lab 01/10/25 16:01 Completed Urine Culture Stat Micro 01/10/25 16:01 Received Medical Decision Narrative: In summary, patient is a 34-year-old female PMHx history of migraines and hypothyroidism who presents to the ED for complaints of generalized abdominal pain, nausea, vomiting, diarrhea since Tuesday. She also adds that she has right rib pain for the past several weeks intermittently. Patient states today she has not had any episodes of diarrhea but is unable to eat or drink as much is normal. She has not been around anyone sick that she is aware of. Denies fever, chills, headache, posterior neck pain, chest pain, shortness of breath, dysuria. Upon initial evaluation she is alert, oriented and cooperative. She is hemodynamically stable. Her physical exam is remarkable for generalized abdominal pain, abdomen is soft. Pain upon palpation of the right rib area. Discussed with patient we will proceed with labs and imaging of her abdomen. We will symptomatically manage with IV fluids, Zofran and acetaminophen. Hematologic labs reviewed. CBC unremarkable for any leukocytosis, stable H&H. CMP unremarkable for any actionable abnormalities.. Urinalysis unremarkable, negative hCG. CT unremarkable for any acute findings however has several additional findings that I discussed with patient. I discussed that she has multiple liver lesions that are noted as benign however I advised her that they may need further evaluation with ultrasonography. We discussed that she has a nonobstructing right kidney stone, largest measuring 5 mm. Advised her of a 12 mm benign- appearing cyst in her left kidney. We discussed that she has a 21 mm cyst on her left ovary that appears physiologic. Patient is already scheduled to follow-up with gynecology at . She states she has had renal stones in the past and had the basket procedure performed. Patient was given a dose of fentanyl at discharge, upon reassessment she states that her condition has improved. She has not had any vomiting or diarrhea while in the ED. Able to tolerate PO. given this, she remains hemodynamically stable, I feel that she is safe to be discharged home at this time. Advised her to follow-up with her PCP and gynecology. We discussed return precautions to the ED and patient verbalized understanding. Critical Care Critical Care Time Critical Care Time: No
[2025-01-10 16:21] LABS: Bilirubin,Urine Negative (Negative); Color,Urine YELLOW (Yellow); Glucose,Urine (UA) Negative (Negative); Ketones,Urine Negative (Negative); Leukocyte Esterase,Urine 1+ (Negative); PH,Urine 7.0 (5.0-8.5); Protein,Urine Negative (Negative); Specific Gravity, Urine 1.015 (1.005-1.030); Urobilinogen,Urine 0.2 EU/dl (0.2)
--- NOTE | 2025-01-10 16:23 | XR_ITS ---
PROCEDURE INFORMATION: Exam: XR Chest Exam date and time: 01/10/2025 4:57 PM Age: 34 years old Clinical indication: Pain; Right-sided; Additional info: Rib pain TECHNIQUE: Imaging protocol: Radiologic exam of the chest. Views: 1 view. COMPARISON: 1. CT ANGIO CHEST PE PROTOCOL 02/17/2021 5:15 AM 2. CR CXR2V XR chest 2V 07/12/2018 1:39 PM FINDINGS: Lungs: Unremarkable. No consolidation. Pleural spaces: Unremarkable. No pleural effusion. No pneumothorax. Heart/Mediastinum: Unremarkable. No cardiomegaly. Bones/joints: Unremarkable. IMPRESSION: Stable chest x-ray with no acute disease.
--- OUTSIDE RECORDS SUMMARY | 2025-01-10 16:31 | XMS_ITS | Encounter Summary ---
Author Organization [facility] Address [address] [place] [address] Care Team Providers Care Rice Milling Supervisor Name Role Phone Lisseth Rivera MD Primary Care Provider [phone]- [phone] Encounter Details Date Type Department Care Team (Latest Contact Info) Description 11/26/2024 Travel Social History Tobacco Use Types Packs/Day Years Used Date Smoking Tobacco: Never Passive Smoke Exposure: Never Smokeless Tobacco: Never Alcohol Use Standard Drinks/Week Comments No 0 [...] place to sleep or slept in a senior living (including now)? No 02/29/2024 PHQ-9 Answer Date [...] any time in the past 12 m [facility], were you homeless or living in a senior living (including now)? No 11/26/2024 Utilities Answer Date Recorded In the past 12 months has th e [employer], gas, oil, or water company threatened to shut off services in your home? No 11/26/2024 Comments No Sex and Gender Information Value Date Recorded Sex Assigned at Not on file Legal Sex Female 7:52 PM EDT Gender Identity Not on file Sexual Orientation Not on file documented as of this encounter Functional Status * Calculated C-SSRS [...] Mala Hoover documented as of this encounter Plan of Treatment Upcoming Encounters Date Type Department Care Team (Late st Contact Info) Description 01/15/2025 9:00 AM EDT Office Visit [facility] Medicine [address] [place] [address] Lisseth Rivera MD [address] [place] [address] 02/19/2025 11:00 AM EDT Procedure Visit Obstetrics & Gynecology [address] [place] [address] Antonia Hugo, ACQUISITIONS ANALYST, [facility] [address] [facility] [address] [place] [address] documented as of this encounter Visit Diagnoses Not on filedocumented in this encounter Additional Health Concerns Assessment Noted Time PHQ-9 Depression Total Score: 9 08/15/19 25 2:12 PM EST A fall risk assessment has been complete d for the patient 02/16/2024 9:50 AM EDT A Body Mass Index follow-up plan has been documented for the patient 11/26/2024 1:33 PM EDT documented as of this encounter Care Teams Rice Milling Supervisor Relationship Specialty Start Date End Date Lisseth Rivera MD [address] [place] [address] PCP - General 08/15/24 documented as of this encounter
--- OUTSIDE RECORDS SUMMARY | 2025-01-10 16:31 | XMS_ITS | Encounter Summary ---
Author Organization [facility] Address [address] [place] [address] Care Team Providers Care As400 Programmer Name Role Phone Lisseth Rivera MD Primary Care Provider [phone]- [phone] Encounter Details Date Type Department Care Team (Late st Contact Info) Description 11/27/2024 Results Follow-Up [facility] [address] [place] [address] Kasey Mckenzie, AIR BRAKE ADJUSTER, DNP [address] [place] [address] Social History Tobacco Use Types Packs/Day Years [...] place to sleep or slept in a fpc (including now)? No 02/29/2024 PHQ-9 Answer Date [...] any time in the past 12 m [facility], were you homeless or living in a fpc (including now)? No 11/26/2024 Utilities Answer Date [...] on file documented as of this encounter Plan of Treatment Upcoming Encounters Date Type Department Care Team (Late st Contact Info) Description 01/15/2025 9:00 AM EDT Office Visit [facility] Medicine [address] [place] [address] Lisseth Rivera MD [address] [place] [address] 02/19/2025 11:00 AM EDT Procedure Visit Obstetrics & Gynecology [address] [place] [address] Antonia Hugo, AIR BRAKE ADJUSTER, [facility] [employer] [facility] [employer] [address] [facility] [address] [place] [address] documented as of this encounter Visit Diagnoses Diagnosis Low blood potassium- Primary Hypopotassemia documented in this encounter Additional Health Concerns Assessment Noted Time PHQ-9 Depression Total Score: 9 08/15/19 2:12 PM EST A fall risk assessment has been complete d for the patient 02/16/2024 9:50 AM EDT A Body Mass Index follow-up plan has been documented for the patient 11/26/2024 1:33 PM EDT documented as of this encounter Care Teams As400 Programmer Relationship Specialty Start Date End Date Lisseth Rivera MD [address] [place] [address] PCP - General 08/15/24 documented as of this encounter
--- OUTSIDE RECORDS SUMMARY | 2025-01-10 16:31 | XMS_ITS | Clinical Summary ---
Author Organization [facility] Address [address] [place] [address] Care Team Providers Care Painter Sign Maintenance Name Role Phone Lisseth Rivera MD Primary Care Provider [phone]- [phone] Allergies Active Allergy Reactions Criticality Noted Date Comments Aspirin Unknown - Patient states they do not know rxn details Low 10/04/2014 Cinnamon Anaphylaxis High 07/10/2024 Ibuprofen Other - please document in the comment field,Unknown - Patient states they do not know rxn details Low 10/10/2007 patient reports tingling in hands and intolerance Iodinated Contrast Media Swelling,Vomiting High 05/08/2024 Iv Contrast Other - please document in the comment field Low 07/25/2019 Iodinated contrast- mouth swelling, vomiting Meperidine Hcl Vomiting Medium 01/25/2019 Vomiting Morphine And Codeine Unknown - Patient states they do not know rxn details Low 10/04/2014 Hives and itching Vancomycin Hcl Rash Low 07/25/2019 vancomycin - blisters Medications * This document contains information received from the source organization and may not represent a complete record from that organization. acetaminophen (Tylenol Extra Strength) 500 MG tablet if needed. 12/12/19 22 Active ketoconazole (NIZOral) 2 % creamIndication s:Pityriasis versicolor APPLY CREAM TOPICALLY TWICE DAILY FOR 28 DAYS 30 g 11/07/19 24 Active Additional Information Patient not taking.Reported on 11/26/2024 omeprazole (PriLOSEC) [address] capsuleIndicati ons:Gastroesoph ageal reflux disease without esophagitis Take 1 capsule (20 mg) by mouth 1 (one) time each day. Do not crush or chew. 90 capsule 2 02/07/20 24 Active amitriptyline (Elavil) 25 MG tabletIndicatio ns:Migraine without status migrainosus, not intractable, unspecified migraine type Take 1 tablet (25 mg) by mouth every night. 30 tablet 11 03/07/20 24 025 Active diphenhydrAMINE (Benadryl) 50 MG tablet Take one tablet 1 hour before contrast injection 1 tablet 05/09/20 24 Active Additional Information Patient not taking.Reported on 11/26/2024 naloxone (Narcan) 4 mg/0.1 mL nasal spray 1. Give 1 spray in nostril for no/slow breathing or cannot wake after opioid use 2. Call 911 3. Repeat in other nostril if symptoms continue 1 each 05/10/20 24 Active oxyCODONE (Roxicodone) 5 MG immediate release tablet Take 1 tablet (5 mg) by mouth every 6 (six) hours if needed for severe pain. 20 tablet 07/10/20 24 Active Additional Information Patient not taking.Reported on 11/26/2024 cetirizine (EQ Allergy Relief, Cetirizine,) 10 MG tabletIndicatio ns:Persistent cough for 3 weeks or longer Take 1 tablet (10 mg) by mouth 1 (one) time each day. 90 tablet 2 08/06/19 25 Active ergocalciferol 1.25 MG (94137 UT) capsule Take 1 capsule by mouth once a week 4 capsule 10/04/19 25 Active Additional Information Patient not taking.Reported on 11/26/2024 Aspirin Low Dose 81 MG EC tablet Take 1 tablet by mouth 1 time. 11/10/19 25 Active fluticasone (Flonase) 50 MCG/ACT nasal sprayIndication s:Allergic rhinitis, unspecified seasonality, unspecified trigger Administer 1 spray into each nostril daily. Shake gently. Before first use, prime pump. After use, clean tip and replace cap. 16 g 11/27/19 25 Active levothyroxine (Synthroid, Levoxyl) 100 MCG tablet TAKE 1 TABLET BY MOUTH ONCE DAILY IN THE MORNING 30 tablet 01/01/20 25 Active levothyroxine (Synthroid) 100 MCG tablet Take 1 tablet (100 mcg) by mouth every morning. 30 tablet 3 09/14/19 25 025 Discontinued Active Problems Problem Noted Date Diagnosed Date Nexplanon insertion 03/07/2022 Arthralgia of shoulder 12/11/2021 Pain in joint of right shoulder 12/11/2021 01/25/2023 Acute bronchitis 02/13/2021 Lower back pain 01/25/2019 Anxiety and depression 01/16/2018 Encounters Date Type Department Care Team Description 12/30/2024 Refill [facility] Otolaryngology [address], [address] [place] [id number] Cirilo Mancuso MD 11/27/2024 Results Follow-Up [facility] [address] [place] [address] Kasey Mckenzie APRN, DNP 11/26/2024 12:40 PM EDT Office Visit [facility] [address] [place] [address] Kasey Mckenzie APRN, DNP Other fatigue (Primary Dx); Blood in stool; Anal fissure; Allergic rhinitis, unspecified seasonality, unspecified trigger 11/26/2024 Travel from Last 3 Months Immunizations Immunization Administration Dates Next Due Hep B, Adolescent or Pediatric 08/12/1998,1997,01/20/1998 Influenza, Unspecified 04/06/2022,2020,06/10/2020,2019 PPD Skin Test (TB Skin Test) 07/13/2017,07/06/20 17 TD (adult), 2 Lf tetanus tox oid, preservative free, adsorbed 06/05/2003 Tdap 10/31/2019 Family History Medical History Relation Name Comments Asthma Brother Jeff Cancer Mother Hannah Depression Mother Hannah Mental illness Mother Hannah Miscarriages / Stillbirths Mother Hannah Bipolar disorder Other 1 Colon cancer Other 2 Hyperlipidemia Other 3 Miscarriages / Stillbirths Sister Trudy Anesthesia problems Neg Hx Malig Hyperthermia Neg Hx Relation Name Status Comments Brother Jeff Mother Hannah Other 1 Other 2 Other 3 Sister Trudy Social History Tobacco Use Types Packs/Day Years [...] place to sleep or slept in a half-way (including now)? No 02/29/2024 PHQ-9 Answer Date [...] any time in the past 12 m [facility], were you homeless or living in a half-way (including now)? No 11/26/2024 Utilities Answer Date Recorded In the past 12 months has th e [employer], gas, oil, or water company threatened to shut off services in your home? No 11/26/2024 Comments No Sex and Gender Information Value Date Recorded Sex Assigned at Not on file Legal Sex Female 7:52 PM EDT Gender Identity Not on file Sexual Orientation Not on file Last Filed Vital Signs Vital Sign Reading [...] Mass Index 28.94 11/26/2024 12:41 PM EDT Plan of Treatment Upcoming Encounters Date Type Department Care Team (Late st Contact Info) Description 01/15/2025 9:00 AM EDT Office Visit [facility] [address] [place] [place] [address] Lisseth [place] [address] 02/19/2025 11:00 AM EDT Procedure Visit Obstetrics & Gynecology [facility] [place] [address] Antonia Hugo, SHEET IRONWORKER, CNM [address] [facility] [address] [place] [address] Health Maintenance Due Date Last Done Comments [facility]-Infant/Child/Adol SDOH Screenings 1990 [id number] Vaccine (#1) 12/25/1995 [facility]-Varicella Vaccines (1 of 2 - 13+ 2-dose series) 12/25/2003 HPV Vaccines (1 - 3-dose series) 2005 [facility]-Influenza Vaccine (#1) 03/11/202504/06, 04/19/2021, 06/10/2020, Additional history exists [facility]- SDOH Screenings 05/29/2025 [facility]-Adult SDOH Screenings 05/29/2025 11/26/2024 [facility]-Depression Screening 08/15/2025 08/15/2024, 020 11/2024 [facility]-Pap Smear 01/30/2027 01/31/2024, 02/0 03/2024, 01/26/2023, Additional history exists [facility]-Cervical Cancer Screening 01/30/2029 [facility]-HPV/Cotest 01/30/2029 01/31/2024, 020 03/2024, 01/26/2023, Additional history exists [facility]-DTaP,Tdap,and Td Vaccines (3 - Td or Tdap) 10/30/2029 10/31/2019, 06/05/2003 [facility]-Zoster Vaccines (1 of 2) 2040 [facility]-Hepatitis B Vaccines Completed 999, 02/28/1998, 01/20/1998 [facility]-Hepatitis C Screening Completed 08/03/2023, 11/2018 [facility]-HIV Screening Completed 08/19/2023, , 06/14/2019 [facility]-Obesity Intervention Completed 025, 08/15/2024, 06/04/2024, Additional history exists [facility]-HIB Vaccines Aged Out No longer e ligible based on patient's age to complete this topic [facility]-Hepatitis A Vaccines Aged Out No longer eligible based on patient's age to complete this topic [facility]-IPV Vaccines Aged Out No longer e ligible based on patient's age to complete this topic [facility]-Pneumococcal Vaccine: Pediatrics (0 to 5 Years) and At-Risk Patients (6 to 49 Years) Aged Out No longer eligible based on patient's age to complete this topic [facility]-Rotavirus Vaccines Aged Out No lo nger eligible based on patient's age to complete this topic Procedures Procedure Name Priority Date/Time Associated Diagnosis Comments VITAMIN B12, SERUM Routine 11/26/2024 1: 33 PM EDT Other fatigue VITAMIN D 25 HYDROXY Routine 11/26/2024 1:33 PM EDT Other fatigue FREE T4, PLASMA Routine 11/26/2024 1:33 PM EDT Other fatigue TSH Routine 11/26/2024 1:33 PM EDT Other fatigue CBC WITH AUTO DIFFERENTIAL Routine 11/26/2024 1:33 PM EDT Other fatigue Blood in stool COMPREHENSIVE METABOLIC PANEL, PLASMA Routine 11/26/2024 1:33 PM EDT Other fatigue Blood in stool REFERRED THINPREP PAP AND HPV (SO) Routine 01/31/2024 10:24 AM EDT ASCUS with positive high risk HPV cervical HIV 1/2 ANTIBODY/ANTIGEN SCREEN WITH REFLEX TO HIV I/II DIFFERENTIATION Routine 08/19/2023 2:38 PM EST Weight loss, unintentional HEPATITIS C ANTIBODY W/REFLEX TO HCV QUANT PCR Routine 08/03/2023 2:00 PM EST Screening for STD (sexually transmitted disease) from Last 3 Months or Most Recently Relevant to Health Maintenance Results * Vitamin D 25 Hydroxy (11/26/2024 1:33 PM EDT) Vitamin D 25 Hydroxy 24.4 20.0 - 80.0 ng/mL 11/26/2024 6:56 PM EDT [facility] Blood Venous blood specimen / Unknown Venipuncture / Unknown 11/26/2024 1:33 PM EDT 11/26/2024 1:33 PM EDT Narrative [facility] - 11/26/2024 6:56 PM EDT Testing performed on Verma Twister In, standardized against NIST SRM 2972. When testing [...] to 80 ng/mL Possible toxicity: >100 ng/mL us Kasey Mckenzie SHEET IRONWORKER, DNP LAB BLOOD ORDERABLES Final Result [facility] [address] [place] [address] * CBC and Differential (11/26/2024 1:33 PM EDT) WBC Count 8.09 3.70 - 10.30 10*3/uL LAB HEMATOLOGY METHOD 11/26/2024 6:03 PM EDT [facility] RBC Count 4.56 3.90 - 5.20 10*6/uL LAB HEMATOLOGY METHOD 11/26/2024 6:03 PM EDT [facility] HGB 13.6 11.2 - 15.7 g/dL LAB HEMATOLOGY METHOD 11/26/2024 6:03 PM EDT [facility] HCT 41.8 34.0 - 45.0 % LAB HEMATOLOGY METHOD 11/26/2024 6:03 PM EDT [facility] Platelet Count 343 155 - 369 10*3/uL LAB HEMATOLOGY METHOD 11/26/2024 6:03 PM EDT [facility] MCV 92 79 - 98 fL LAB HEMATOLOGY METHOD 11/26/2024 6:03 PM EDT [facility] MCH 29.8 26.0 - 32.0 pg LAB HEMATOLOGY METHOD 11/26/2024 6:03 PM EDT [facility] MCHC 32.5 30.7 - 35.5 g/dL LAB HEMATOLOGY METHOD 11/26/2024 6:03 PM EDT [facility] RDW 12.4 11.5 - 14.5 % LAB HEMATOLOGY METHOD 11/26/2024 6:03 PM EDT [facility] MPV 9.4 8.8 - 12.5 fL LAB HEMATOLOGY METHOD 11/26/2024 6:03 PM EDT [facility] nRBC 0.0 <=0.0 per 100 WBCs LAB HEMATOLOGY METHOD 11/26/2024 6:03 PM EDT [facility] Differential Type Automated LAB HEMATOLOGY METHOD 11/26/2024 6:03 PM EDT [facility] Neutrophils % 63 % LAB HEMATOLOGY METHOD 11/26/2024 6:03 PM EDT [facility] Lymphocytes % 28 % LAB HEMATOLOGY METHOD 11/26/2024 6:03 PM EDT [facility] Monocytes % 5 % LAB HEMATOLOGY METHOD 11/26/2024 6:03 PM EDT [facility] Eosinophils % 3 % LAB HEMATOLOGY METHOD 11/26/2024 6:03 PM EDT [facility] Basophils % 1 % LAB HEMATOLOGY METHOD 11/26/2024 6:03 PM EDT [facility] Immature Granulocytes % 0 % LAB HEMATOLOGY METHOD 11/26/2024 6:03 PM EDT [facility] Neutrophils Absolute 5.14 1.60 - 6.10 10*3/uL LAB HEMATOLOGY METHOD 11/26/2024 6:03 PM EDT [facility] Lymphocytes Absolute 2.26 1.20 - 3.90 10*3/uL LAB HEMATOLOGY METHOD 11/26/2024 6:03 PM EDT [facility] Monocytes Absolute 0.39 0.30 - 0.90 10*3/uL LAB HEMATOLOGY METHOD 11/26/2024 6:03 PM EDT [facility] Eosinophils Absolute 0.20 0.00 - 0.50 10*3/uL LAB HEMATOLOGY METHOD 11/26/2024 6:03 PM EDT [facility] Basophils Absolute 0.07 0.00 - 0.10 10*3/uL LAB HEMATOLOGY METHOD 11/26/2024 6:03 PM EDT [facility] Immature Granulocytes Absolute 0.03 0.00 - 0.06 10*3/uL LAB HEMATOLOGY METHOD 11/26/2024 6:03 PM EDT [facility] Blood Venous blood specimen / Unknown Venipuncture / Unknown 11/26/2024 1:33 PM EDT 11/26/2024 1:33 PM EDT [facility] - 11/26/2024 6:03 PM EDT Therapeutic decision making should be based on absolute values, rather than percentages. Kasey Mckenzie APRN, DNP LAB BLOOD ORDERABLES Final Result Performing Organization Address [facility] Co de Phone Number [facility] [address] [place] [address] * TSH (11/26/2024 1:33 PM EDT) Thyroid Stimulating Hormone, Plasma 3.12 0.40 - 4.20 uIU/mL 11/26/2024 6:15 PM EDT [facility] Blood Venous blood specimen / Unknown Venipuncture / Unknown 11/26/2024 1:33 PM EDT 11/26/2024 1:33 PM EDT [facility] - 11/26/2024 6:15 PM EDT Trimester Specific Ranges TSH ( IU/mL) 1st Trimester 0.1 - 3.0 2nd Trimester 0.19 - 4.06 3rd Trimester 0.3 - 3.7 Kasey Mckenzie APRN, DNP LAB BLOOD ORDERABLES Final Result Performing Organization Address [facility]/[place] [address] * T4, free (11/26/2024 1:33 PM EDT) Free T4, Plasma 1.5 0.8 - 1.7 ng/dL 11/26/2024 6:15 PM EDT [facility] Blood Venous blood specimen / Unknown Venipuncture / Unknown 11/26/2024 1:33 PM EDT 11/26/2024 1:33 PM EDT [facility] - 11/26/2024 6:15 PM EDT Free T4 Trimester Specific Ranges 1st Trimester 0.9 - 1.50 ng/dL 2nd Trimester 0.7 - 1.40 ng/dL 3rd Trimester 0.7 - 1.24 ng/dL us Kasey Mckenzie APRN, DNP LAB BLOOD ORDERABLES Final Result Performing Organization Address City/[facility]/ZIP Co de Phone Number [facility] [address] [place] [address] * Vitamin B12, Serum (11/26/2024 1:33 PM EDT) Vitamin B12, Serum 487 210 - 1,033 pg/mL 11/26/2024 6:29 PM EDT [facility] Blood Venous blood specimen / Unknown Venipuncture / Unknown 11/26/2024 1:33 PM EDT 11/26/2024 1:33 PM EDT us Kasey Mckenzie APRN, DNP LAB BLOOD ORDERABLES Final Result Performing Organization Address City/[facility]/ZIP Co de Phone Number [facility] [address] [place] [address] * (ABNORMAL) Comprehensive Metabolic Panel, Plasma (11/26/2024 1:33 PM EDT) Glucose, Plasma 83 74 - 99 mg/dL 11/26/2024 6:15 PM EDT [facility] BUN, Plasma 10 7 - 21 mg/dL 11/26/2024 6:15 PM EDT [facility] Creatinine, Plasma 0.68 0.60 - 1.10 mg/dL 11/26/2024 6:15 PM EDT [facility] BUN/Creatinine Ratio 15 11/26/2024 6:15 PM EDT [facility] Sodium, Plasma 140 136 - 145 mmol/L 11/26/2024 6:15 PM EDT [facility] Potassium, Plasma 3.3(L) 3.6 - 4.9 mmol/L 11/26/2024 6:15 PM EDT [facility] Chloride, Plasma 102 97 - 107 mmol/L 11/26/2024 6:15 PM EDT [facility] CO2, Plasma 27 22 - 29 mmol/L 11/26/2024 6:15 PM EDT [facility] Anion Gap 11 6 - 16 mmol/L 11/26/2024 6:15 PM EDT [facility] Total Calcium, Plasma 8.9 8.9 - 10.2 mg/dL 11/26/2024 6:15 PM EDT [facility] Total Protein 6.9 6.3 - 7.9 g/dL 11/26/2024 6:15 PM EDT [facility] Albumin, Plasma 4.5 3.5 - 5.2 g/dL 11/26/2024 6:15 PM EDT [facility] AST, Plasma 27 10 - 35 U/L 11/26/2024 6:15 PM EDT [facility] ALT, Plasma 34 10 - 35 U/L 11/26/2024 6:15 PM EDT [facility] Alkaline Phosphatase, Plasma 88 35 - 104 U/L 11/26/2024 6:15 PM EDT [facility] Total Bilirubin, Plasma 0.4 0.2 - 1.1 mg/dL 11/26/2024 6:15 PM EDT [facility] eGFRcr 118.1 mL/min/1.7 3m*2 11/26/2024 6:15 PM EDT [facility] Comment:Reported eGFRcr in m L/min/1.73m2 is based the CKD-EPI 2020 equation that does not use a race coefficient. Blood Venous blood specimen / Unknown Venipuncture / Unknown 11/26/2024 1:33 PM EDT 11/26/2024 1:33 PM EDT us Kasey Mckenzie SHEET IRONWORKER, DNP LAB BLOOD ORDERABLES Final Result [facility] [address] [place] [address] * (ABNORMAL) Referred ThinPrep Pap and HPV (SO) (01/31/2024 10:24 AM EDT) Pap, Source Cx/Vagina 02/08/2024 6:35 PM EDT [facility] Referred ThinPrep Pap and HPV See Note 02/08/2024 6:35 PM EDT [facility] PAP, THINPREP Abnormal(A ) 02/08/2024 6:35 PM EDT [facility] High Risk HPV Abnormal(A ) 02/08/2024 6:35 PM EDT [facility] ([place]) HPV Genotype Abnormal(A ) 02/08/2024 6:35 PM EDT [facility] ([place]) Swab Vaginal and cervical cytologic material / Unknown Non-blood Collection / Unknown 01/31/2024 10:24 AM EDT 01/31/2024 12:55 PM EDT Narrative [facility] ([place]) - 02/08/2024 6:35 PM EDT Authorized individuals can access the [place] Enhanced Report using the following link: [email or web address] Performed By: [facility] [address] [place] [id number] Fastener Technologist: Edin Grande MD, PhD CLIA Number: [id number] SPECIMEN PART A. Cervical, Endocervical, Vaginal, ThinPrep Pap (Community Relations Manager) CYTOLOGY HX Date of Last Menstrual Period: n FINAL DIAGNOSIS GENERAL CATEGORY: Abnormal INTERPRETATION: Atypical Squamous Cells Of Undetermined Significance (ASC-US). SPECIMEN ADEQUACY:Satisfactory for evaluation. Endocervical/transformation zone component present. Electronically Signed Out : Micheal Posadas MD Performed by: [facility] [place] [address] Rubia Jensen MD, HR-HPV: Positive Test performed by the FDA-approved Hologic (Gen-Probe) APTIMA HPV test, which detects HPV genotypes: 16, 18, 31, 33, 35, 39, 45, 51, 52, 56, 58, 59, 66, and 68. Performed by: [facility] [address] [place] [address] [place] [address] Rubia Jensen MD, HPV TYPE 16: Positive HPV TYPE 18/45: Negative Testing performed by the FDA-approved APTIMA HPV 16 18/45 Genotype Assay. Performed by: [facility] [address] [place] [address] [place] [address] Rubia Jensen MD, Katelyn Moreno APRN, DNP LAB REF LAB BLOOD AND F LUID ORD Final Result Performing Organization Address City/[facility]/ZIP Co de Phone Number [facility] ([address] [address] * HIV 1 & 2 Antibody/Antigen Screen (08/19/2023 2:38 PM EST) HIV 1 & 2 Antibody/Antigen Screen Non Reactive Non Reactive 08/19/2023 7:15 PM EST [facility] Comment:Screening for HIV 1 & 2 antibodies, and P24 antigen is NONREACTIVE. No confirmatory testing is required. Blood Venous blood specimen / Unknown Venipuncture / Unknown 08/19/2023 2:38 PM EST 08/19/2023 2:38 PM EST us Kasey Mckenzie APRN, DNP LAB BLOOD ORDERABLES Final Result Performing Organization Address City/[facility]/ZIP Co de Phone Number [facility] [address] [place] [address] * Hepatitis C Antibody (08/03/2023 2:00 PM EST) Hepatitis C Antibody Negative Negative 08/03/2023 7:03 PM EST [facility] Blood Venous blood specimen / Unknown Venipuncture / Unknown 08/03/2023 2:00 PM EST 08/03/2023 6:20 PM EST us Sukumar Zimmerman MD LAB BLOOD ORDERABLES Final Resu lt Performing Organization Address City/[facility]/ZIP Co de Phone Number [facility] [address] [place] [phone] from Last 3 Months or Most Recently Relevant to Health Maintenance Insurance ANTHEM Care Teams Painter Sign Maintenance Relationship Specialty Start Date End Date Lisseth Rivera MD [address] [place] [phone] PCP - General 08/15/24
--- OUTSIDE RECORDS SUMMARY | 2025-01-10 16:31 | XMS_ITS | Encounter Summary ---
Author Organization [facility] Address [address] [id number] Care Team Providers Care Stitch Marker Name Role Phone Lisseth Rivera MD Primary Care Provider +1- [phone] Reason for Visit * Reason Comments Med Refill Encounter Details Date Type Department Care Team (Late st Contact Info) Description 12/30/2024 Refill [facility] Ot[facility]ology [address], [address] [place] [address] Cirilo Mancuso MD [address] [place] [address] [facility] [address] [place] [address] Social History Tobacco Use Types Packs/Day Years [...] place to sleep or slept in a halfway (including now)? No 02/29/2024 PHQ-9 Answer Date [...] any time in the past 12 m [facility], were you homeless or living in a halfway (including now)? No 11/26/2024 Utilities Answer Date [...] Description 01/15/2025 9:00 AM EDT Office Visit [facility] [address] [place] [address] Lisseth Rivera MD [address] [place] [address] 02/19/2025 11:00 AM EDT Procedure Visit Obstetrics & Gynecology [address] [place] [address] Antonai Hugo APRN, [facility] [address] [facility] [address] [place] [address] documented as of this encounter [...] documented as of this encounter Care Teams Stitch Marker Relationship Specialty Start Date End Date Lisseth Rivera MD [address] [place] [address] PCP - General 08/15/24 documented as of this encounter
--- OUTSIDE RECORDS SUMMARY | 2025-01-10 16:31 | XMS_ITS | Encounter Summary ---
Author Organization [facility] Address [address] [place] [address] Care Team Providers Care Library Consultant Name Role Phone Rubia Hoover APRN Primary Care Provider [phone] Lisseth Rivera MD Primary Care Provider [phone] Encounter Details Date Type Department Care Team (Late st Contact Info) Description 08/09/2024 Outside Procedure External Location [address] [place] [id number] Provider, [facility] Social History Tobacco Use Types Packs/Day Years Used Date Smoking Tobacco: Never Smokeless Tobacco: Never Alcohol Use Standard Drinks/Week Comments No 0 (1 standard drink = 0.6 oz pur e alcohol) Humiliation, Afraid, Rape, and Kick questionnair e Answer Date Recorded Within the last year, have y ou been afraid of your partner or ex-partner? No 02/29/2024 Within the last year, have y ou been humiliated or emotionally abused in other ways by your partner or ex-partner? No Within the last year, have y ou been kicked, hit, slapped, or otherwise physically hurt by your partner or ex-partner? No 02/29/2024 Within the last year, have y ou been raped or forced to have any kind of sexual activity by your partner or ex-partner? No 02/29/2024 PHQ-2 Answer Date Recorded Patient Health Questionnaire-2 Score 0 02/29/2024 Hunger Vital Sign Answer Date Recorded Within the past 12 months, y ou worried that your food would run out before you got the money to buy more. Never true 02/29/20 24 Within the past 12 months, t he food you bought just didn't last and you didn't have money to get more. Never true 02/29/2024 PRAPARE - Transportation Answer Date Re corded In the past 12 months, has l ack of transportation kept you from medical appointments or from getting medications? No 02/09 In the past 12 months, has l ack of transportation kept you from meetings, work, or from getting things needed for daily living? No 02/29/2024 Housing Stability Vital Sign Answer Collin e [...] place to sleep or slept in a usp (including now)? No 02/29/2024 Utilities Answer Date Recorded In the past 12 months has th e electric, gas, oil, or water company threatened to shut off services in your home? No 02/29/2024 Comments No Sex and Gender Information Value Date Recorded Sex Assigned at Not on file Legal Sex Female 7:52 PM EDT Gender Identity Not on file Sexual Orientation Not on file documented as of this encounter Plan of Treatment Upcoming Encounters Date Type Department Care Team (Late st Contact Info) Description 01/15/2025 9:00 AM EDT Office Visit [facility] [place] [address] Lisseth Rivera [place] [address] 02/19/2025 11:00 AM EDT Procedure Visit Obstetrics & Gynecology [address] [place] [address] Antonia Hugo, SALES DIRECTOR, CNM [address] [facility] [address] [place] [address] documented as of this encounter Procedures Procedure Name Priority Date/Time Associated Diagnosis Comments XR KNEE LEFT 3 VIEWS 08/09/2024 4:57 PM EST documented in this encounter Results * XR Knee Left 3 Views (08/09/2024 4:57 PM EST) Anatomical Region Laterality Modality Lower Extremities, Knee Left Digital Radiography 08/09/2024 4:57 PM EST Narrative 08/13/2024 9:19 AM EST [address] [address] Name: BELIA ALLISON Exam Date: 08/09/2024 : 1990 Age 33 years Gender: F Physician: NO, DEFINED Facility: [facility] Facility HSV: Outpatient Exam: KNEE 3V LT XR KNEE 3 VIEWS LEFT REASON FOR STUDY: pain in left knee PATIENT DEMOGRAPHICS:33 years, Female DATE OF SERVICE: 08/09/2024 4:16 PM SERVICE PLANNER COMPARISON: No existing relevant imaging study corresponding to the same anatomical region is available. FINDINGS:3 views of the left knee were submitted. No bone or joint abnormality. Soft tissues are normal. IMPRESSION: Normal examination Electronically signed by: Osiel Mariscal MD 08/13/2024 09:15 AM EST Dictated By: Osiel Mariscal Transcribed By: Transcribed On: 08/09/2024 5:16 PM Electronically signed by: Osiel Mariscal 08/09/2024 Thank you for referring BELIA ALLISON to [facility]. Legally authenticated by MICHELLE HUMPHREYS 2024-08-09 17:16:00 Procedure Note Provider, Generic [place] - 08/13/[address] [place] [address] Name: BELIA ALLISON Exam Date: 08/09/2024 : 1990 Age 33 years Gender: F Physician: ONEIL, DEFINED Facility: [facility] Facility HSV: Outpatient Exam: KNEE 3V LT XR KNEE 3 VIEWS LEFT REASON FOR STUDY: pain in left knee PATIENT DEMOGRAPHICS:33 years, Female DATE OF SERVICE: 08/09/2024 4:16 PM SERVICE PLANNER COMPARISON: No existing relevant imaging study corresponding to the same anatomical region is available. FINDINGS:3 views of the left knee were submitted. No bone or joint abnormality. Soft tissues are normal. IMPRESSION: Normal examination Electronically signed by: Osiel Mariscal MD 08/13/2024 09:15 AM EST RP Dictated By: Osiel Mariscal Transcribed By: Transcribed On: 08/09/2024 5:16 PM Electronically signed by: Osiel Mariscal 08/09/2024 Thank you for referring BELIA ALLISON to [facility]. Legally authenticated by MICHELLE HUMPHREYS 2024-08-09 17:16:00 Generic [place] Provider IMG XR PROCEDURES Fi nal Result documented in this encounter Visit Diagnoses Not on filedocumented in this encounter Additional Health Concerns Assessment Noted Time A fall risk assessment has been complete d for the patient 02/16/2024 9:50 AM EDT A Body Mass Index follow-up plan has been documented for the patient 06/04/2024 8:59 AM EST documented as of this encounter Care Teams Library Consultant Relationship Specialty Start Date End Date Rubia Hoover APRN [address] [place] [address] PCP - General 11/21/20 08/14/24 Lisseth Rivera MD [address] [place] [address] PCP - General 08/15/24 documented as of this encounter
--- OUTSIDE RECORDS SUMMARY | 2025-01-10 16:32 | XMS_ITS | Encounter Summary ---
Author Organization [facility] Address [address] [place] [address] Care Team Providers Care Publicity Expert Name Role Phone SnehaShahlapedro Chandra APRN Primary Care Provider [phone] Lisseth Rivera MD Primary Care Provider [phone] Encounter Details Date Type Department Care Team (Late st Contact Info) Description 06/24/2022 Outside Procedure External Location [address] [place] [address] Provider, [facility] Social History Tobacco Use Types Packs/Day Years Used Date Smoking Tobacco: Never Smokeless Tobacco: Never Alcohol Use Standard Drinks/Week Comments No 0 (1 standard drink = 0.6 oz pur e alcohol) PHQ-2 Answer Date Recorded Patient Health Questionnaire-2 Score 0 02/13/2021 Comments No Sex and Gender Information Value Date Recorded Sex Assigned at Not on file Legal Sex Female 7:52 PM EDT Gender Identity Not on file Sexual Orientation Not on file documented as of this encounter Plan of Treatment Upcoming Encounters Date Type Department Care Team (Late Contact Info) Description 01/15/2025 9:00 AM EDT Office Visit [facility] [address] Lisseth Rivera MD [address] [place] [address] 02/19/2025 11:00 AM EDT Procedure Visit Obstetrics & Gynecology [address] [place] [address] Antonia Hugo, MARINA DRY DOCK MANAGER, CNM [address] [place] [address] documented as of this encounter Procedures Procedure Name Priority Date/Time Associated Diagnosis Comments CT ABDOMEN PELVIS WO IV CONTRAST 06/24/2022 6:13 PM EST documented in this encounter Results * CT Abdomen Pelvis wo IV Contrast (06/24/2022 6:13 PM EST) Anatomical Region Laterality Modality Abdomen, Pelvis Computed Tomogra phy 06/24/2022 6:13 PM EST Narrative 06/24/2022 8:18 PM EST [address] [address] Name: BELIA ALLISON Exam Date: 06/24/2022 : 1990 Age 31 Gender: F Physician: ANDREI WISE Facility: [facility] Facility HSV: Outpatient Exam: CT ABD PEL W/O FINAL REPORT TECHNIQUE: Axial CT images were performed from the lung bases through the symphysis pubis without IV contrast. This study was performed with techniques to keep radiation doses as low as reasonably achievable (ALARA). Individualized dose reduction techniques using automated exposure control or adjustment of mA and/or kV according to the patient's size were employed. CLINICAL HISTORY: NAUSEA, LEFT FLANK PAIN/ LLQ PAIN X 2 WEEKS. HX OF KIDNEY STONES. FINDINGS: Lack of intravenous contrast limits evaluation of solid abdominal and pelvic organs. LOWER CHEST: The heart is normal size. The lung bases are clear. ABDOMEN/PELVIS: Liver, gallbladder and bile ducts: There is a 2 cm low-attenuation lesion in the right hepatic lobe which is indeterminate, best visualized on image 11 of series 2. The gallbladder is unremarkable. There is no definite biliary duct dilatation. Adrenal glands: The adrenal glands are morphologically unremarkable without suspicious lesion. Kidneys, ureter and urinary bladder: There are nonobstructing bilateral kidney stones. No hydronephrosis. Urinary bladder is unremarkable. Spleen: The spleen is normal size. Pancreas: The pancreas is grossly unremarkable. GI systems and mesentery: No evidence of bowel obstruction. There has been a prior appendectomy. No significant mesenteric inflammation. Lymph nodes: No definite pathologically enlarged abdominal or pelvic lymph nodes present within the limits of this noncontrast enhanced exam. Vessels: The abdominal aorta is normal in caliber. The inferior vena cava is unremarkable. Peritoneum: No free intraperitoneal fluid or pneumoperitoneum. Pelvic viscera: No acute findings. Body wall: No body wall contusion. Bones: No acute fracture. IMPRESSION: No acute findings in the abdomen and pelvis to account for patient's symptoms. Indeterminate low-attenuation lesion in the right hepatic lobe. Further characterize with contrast-enhanced MRI of the abdomen that should be done as an outpatient. Reviewed, Interpreted and Dictated by Ventura Tracey MD Transcribed by Honey Noble Authenticated and EASTERN Dictated By: Ventura Tracey Transcribed By: Transcribed On: 06/24/2022 8:06 PM Electronically signed by: Ventura Tracey 06/24/2022 Thank you for referring BELIA ALLISON to [facility]. Legally authenticated by GRADY Hwang 2022-06-24 20:06:50 Procedure Note Provider, Generic [place] - 06/24/2022 [place] [address] Name: BELIA ALLISON Exam Date: 06/24/2022 : 1990 Age 31 Gender: F Physician: ANDREI WISE Facility: [facility] Facility HSV: Outpatient Exam: CT ABD PEL W/O FINAL REPORT TECHNIQUE: Axial CT images were performed from the lung bases through the symphysis pubis without IV contrast. This study was performed with techniques to keep radiation doses as low as reasonably achievable (ALARA). Individualized dose reduction techniques using automated exposure control or adjustment of mA and/or kV according to the patient's size were employed. CLINICAL HISTORY: NAUSEA, LEFT FLANK PAIN/ LLQ PAIN X 2 WEEKS. HX OF KIDNEY STONES. FINDINGS: Lack of intravenous contrast limits evaluation of solid abdominal and pelvic organs. LOWER CHEST: The heart is normal size. The lung bases are clear. ABDOMEN/PELVIS: Liver, gallbladder and bile ducts: There is a 2 cm low-attenuation lesion in the right hepatic lobe which is indeterminate, best visualized on image 11 of series 2. The gallbladder is unremarkable. There is no definite biliary duct dilatation. Adrenal glands: The adrenal glands are morphologically unremarkable without suspicious lesion. Kidneys, ureter and urinary bladder: There are nonobstructing bilateral kidney stones. No hydronephrosis. Urinary bladder is unremarkable. Spleen: The spleen is normal size. Pancreas: The pancreas is grossly unremarkable. GI systems and mesentery: No evidence of bowel obstruction. There has been a prior appendectomy. No significant mesenteric inflammation. Lymph nodes: No definite pathologically enlarged abdominal or pelvic lymph nodes present within the limits of this noncontrast enhanced exam. Vessels: The abdominal aorta is normal in caliber. The inferior vena cava is unremarkable. Peritoneum: No free intraperitoneal fluid or pneumoperitoneum. Pelvic viscera: No acute findings. Body wall: No body wall contusion. Bones: No acute fracture. IMPRESSION: No acute findings in the abdomen and pelvis to account for patient's symptoms. Indeterminate low-attenuation lesion in the right hepatic lobe. Further characterize with contrast-enhanced MRI of the abdomen that should be done as an outpatient. Reviewed, Interpreted and Dictated by Ventura Tracey MD Transcribed by Honey Noble Authenticated and EASTERN Dictated By: Ventura Tracey Transcribed By: Transcribed On: 06/24/2022 8:06 PM Electronically signed by: Ventura Tracey 06/24/2022 Thank you for referring BELIA ALLISON to [facility]. Legally authenticated by GRADY Hwang 2022-06-24 20:06:50 Generic [place] Provider IMG CT PROCEDURES Fi nal Result documented in this encounter Visit Diagnoses Not on filedocumented in this encounter Additional Health Concerns Infection Onset Date Last Indicated Resolved Time COVID-19 Rule-Out 09/26/2023 09/26/2023 09/26/2023 10:16 AM EDT Influenza 09/26/2023 09/26/2023 10/24/2023 5:23 AM EDT documented as of this encounter Care Teams Publicity Expert Relationship Specialty Start Date End Date Rubia Hoover APRN [address] [place] [address] PCP - General 11/21/20 08/14/24 Lisseth Rivera MD [address] [place] [address] PCP - General 08/15/24 documented as of this encounter
--- OUTSIDE RECORDS SUMMARY | 2025-01-10 16:32 | XMS_ITS | Clinical Summary ---
Author Organization [facility] Address [address] [place] [id number] Phone [email or web address] Care Team Providers Care Precision Honing Machine Operator Name Role Phone Unavailable Primary Care Provider Unavailabl e Allergies Active Allergy Reactions Criticality Noted Date Comments Aspirin Rash Low 10/04/2014 Ibuprofen Other (see comments) Low 10/10/2007 Other reaction(s): Unknown patient reports tingling in hands and intolerance Meperidine Hives Medium 10/04/2014 Other reaction(s): Unknown Morphine And Codeine Low 10/04/2014 Other reaction(s): Unknown Other Other (see comments) Low 07/25/2019 IV contrast dye - mouth swelling, vomiting Vancomycin Rash Low 07/25/2019 vancomycin - blisters Medications Paragard Intrauterine Copper intrauterine device 07/08/2020 Active pseudoephedrine (SUDAFED) 120 MG 12 hr tablet Take 120 mg by mouth every 12 hours. 02/17/2021 Active Active Problems Problem Noted Date Diagnosed Date Acute bronchitis 02/13/2021 Anxiety and depression 01/16/2018 Social History Tobacco Use Types Packs/Day Years Used Date Smoking Tobacco: Never Smokeless Tobacco: Never Intimate Partner Violence Answer Date R ecorded Insults You Not on file 10/22/2020 Threatens You Not on file 10/22/2020 Screams at You Not on file 10/22/2020 Physically Hurt Not on file 10/22/2020 Intimate Partner Violence Score Not on file 10/22/2020 Stress Answer Date Recorded Stress in your Life Not on file 05/14/2024 Dealing with Stress 3 05/14/2024 Comments Unknown Sex and Gender Information Value Date Recorded Sex Assigned at Not on file Legal Sex Female 12:16 PM CDT Gender Identity Not on file Sexual Orientation Not on file Last Filed Vital Signs Vital Sign Reading Time Taken Comments Blood Pressure 108/75 05/16/2015 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 Pulse 95 09/07/2021 11:39 AM EST Temperature 37.7 C (99.8 F) 09/09/2021 6:59 AM EST Respiratory Rate - - Oxygen Saturation 98% 09/07/2021 11:39 AM EST Inhaled Oxygen Concentration - - Weight - - Height - - Body Mass Index - - Plan of Treatment Health Maintenance Due Date Last Done Comments Dental Cleaning/Exam 1990 HIV Screening 1990 Hepatitis C Screening 1990 Cervical Cancer Screening 2006 Annual Preventive Exam 2008 Hep B Infection Screening - Triple Screen 2008 Covid-19 Immunization ( season) 2024 Influenza Immunization (Season Ended) 2025 06/10/2020, 05/30/2020 Tetanus Diphtheria and Pertussis Immunization (3 - Td or Tdap) 10/30/2029 10/31/2019, 06/05/2003 Hepatitis B Immunization Completed 999, 02/28/1998, 01/20/1998 HIB Immunization Aged Out No longer e ligible based on patient's age to complete this topic HPV Immunization Aged Out No longer e ligible based on patient's age to complete this topic Hepatitis A Immunization Aged Out No longer eligible based on patient's age to complete this topic Pneumococcal: Ped (0 to 5 Yrs) and At-Risk Member (6 to 64 Yrs) Aged Out No longer eligible b ased on patient's age to complete this topic Polio Immunization Aged Out No longer eligible based on patient's age to complete this topic Varicella Immunization Aged Out No lo nger eligible based on patient's age to complete this topic Insurance OPT OUT NO COPAY NB
--- OUTSIDE RECORDS SUMMARY | 2025-01-10 16:32 | XMS_ITS | Encounter Summary ---
Author Organization [facility] Address [address] [place] [address] Care Team Providers Care Business Education Teacher Name Role Phone SnehaShahla perazapedro Chandra APRN Primary Care Provider [phone] Lisseth Rivera MD Primary Care Provider [phone] Encounter Details Date Type Department Care Team (Late st Contact Info) Description 10/13/2021 Outside Procedure External Location [address] [place] [address] Provider, [facility] [place] Social History Tobacco Use Types Packs/Day Years Used Date Smoking Tobacco: Never Smokeless Tobacco: Never Alcohol Use Standard Drinks/Week Comments No 0 (1 standard drink = 0.6 oz pur e alcohol) PHQ-2 Answer Date Recorded Patient Health Questionnaire-2 Score 0 02/13/2021 Comments Unknown Sex and Gender Information Value Date Recorded Sex Assigned at Not on file Legal Sex Female 7:52 PM EDT Gender Identity Not on file Sexual Orientation Not on file documented as of this encounter Plan of Treatment Upcoming Encounters Date Type Department Care Team (Late st Contact Info) Description 01/15/2025 9:00 AM EDT [facility] [place] [address] Lisseth Rivera MD [address] [place] [address] 02/19/2025 11:00 AM EDT Procedure Visit Obstetrics & Gynecology [address] [place] [address] Antonia Hugo, TRIMMING CUTTER MACHINE, CNM [address] [facility] [address] [place] [address] documented as of this encounter Procedures Procedure Name Priority Date/Time Associated Diagnosis Comments XR SHOULDER RIGHT 2+ VIEWS 10/13/2021 4:47 PM EDT documented in this encounter Results * XR Shoulder Right 2+ Views (10/13/2021 4:47 PM EDT) Anatomical Region Laterality Modality Upper Extremities, Shoulder Right Radi ographic Imaging 10/13/2021 4:47 PM EDT Narrative 10/14/2021 9:38 AM EDT [facility] [address] [place] [address] Name: BELIA ALLISON Exam Date: 10/13/2021 : 1990 Age 30 Gender: F Physician: JAYDEN PEREYRA Facility: [facility] Facility HSV: Outpatient Exam: SHOULDER COMP MIN 2 VWS RT RIGHT SHOULDER SERIES HISTORY: Right shoulder pain COMPARISON: None FINDINGS: Three views demonstrate no acute displaced fracture or bony dislocation. The joint spaces are normal. The soft tissues are normal. No joint effusion. IMPRESSION: No acute process. Images reviewed, interpreted, and dictated by Dr. Nick Sotelo. Transcribed by German Alvarado PA-C Dictated By: Nick Benton Transcribed By: Nick Sotelo Transcribed On: 10/14/2021 9:27 AM Electronically signed by: Nick Benton 10/14/2021 Thank you for referring BELIA ALLISON to [facility]. Legally authenticated by WILBERTO HALE 2021-10-14 09:27:31 Procedure Note Provider, [facility] [place] - 10/14/2021 [address] [place] [address] Name: BELIA ALLISON Exam Date: 10/13/2021 : 1990 Age 30 Gender: F Physician: JAYDEN PEREYRA Facility: [facility] Facility HSV: Outpatient Exam: SHOULDER COMP MIN 2 VWS RT RIGHT SHOULDER SERIES HISTORY: Right shoulder pain COMPARISON: None FINDINGS: Three views demonstrate no acute displaced fracture or bony dislocation. The joint spaces are normal. The soft tissues are normal.No joint effusion. IMPRESSION: No acute process. Images reviewed, interpreted, and dictated by Dr. Nick Sotelo. Transcribed by German Alvarado PA-C Dictated By: Nick Benton Transcribed By: Nick Sotelo Transcribed On: 10/14/2021 9:27 AM Electronically signed by: Nick Benton 10/14/2021 Thank you for referring BELIA ALLISON to [facility]. Legally authenticated by WILBERTO HALE 2021-10-14 09:27:31 Generic [place] Provider IMG XR PROCEDURES Fi nal Result documented in this encounter Visit Diagnoses Not on filedocumented in this encounter Additional Health Concerns Infection Onset Date Last Indicated Resolved Time COVID-19 Rule-Out 09/26/2023 09/26/2023 09/26/2023 10:16 AM EDT Influenza 09/26/2023 09/26/2023 10/24/2023 5:23 AM EDT documented as of this encounter Care Teams Business Education Teacher Relationship Specialty Start Date End Date Rubia Hoover APRN [facility] [place] [address] [place] [address] PCP - General 11/21/20 08/14/24 Lisseth Rivera MD [address] [place] [address] PCP - General 08/15/24 documented as of this encounter
--- NOTE | 2025-01-10 16:36 | PC.NURSE ---
pt medicated per emar. call light within reach. updated on poc. no needs at this time
[2025-01-10] MEDS: ONDANSETRON 4MG/2ML VIAL 4 MG IV (16:37)
[2025-01-10] MEDS: ACETAMINOPHEN 1,000MG/100ML VIAL 1000 MG IV (16:38)
[2025-01-10] MEDS: 0.9 % SODIUM CHLORIDE 1000ML 500 ML 999 ML IV (16:38)
[2025-01-10 16:43] LABS: Urine Pregnancy, HCG Qual. Negative (Negative)
[2025-01-10 16:50] LABS: Hematocrit 43.5 % (37.0-47.0); Hemoglobin 14.6 g/dL (12.2-16.2); Immature Granulocytes % 0.4 %; Mean Corpuscular HGB Conc 33.6 g/dL (31.8-35.4); Mean Corpuscular Hemoglobin 29.9 pg (27.0-31.2); Mean Corpuscular Volume 89.0 fl (81-99); Nucleated Red Blood Cells % 0 %; Platelet Count 320 K/mm3 (142-424); Red Blood Count 4.89 M/mm3 (4.20-5.40); Red Cell Distribution Width-SD 40.6 fL; White Blood Count 6.9 K/mm3 (4.8-10.8)
[2025-01-10 16:51] LABS: Albumin Level 4.8 g/dl (3.5-5.0); Chloride 103 mmol/L (98-107)
[2025-01-10 16:52] LABS: Potassium 4.3 mmoL/L (3.5-5.1); Sodium 139 mmol/L (136-145)
[2025-01-10 16:54] LABS: Alanine Aminotransferase 21 U/L (12-78); Alkaline Phosphatase 94 U/L (38-126); Anion Gap 13.3 mEq/L (5-15); Aspartate Amino Transferase 32 U/L (14-36); Bilirubin,Total 0.5 mg/dl (0.2-1.3); Blood Urea Nitrogen 5 mg/dl (7-17); Carbon Dioxide 27 mmol/L (22.0-30.0); Creatinine,Serum 0.70 mg/dl (0.52-1.04); Estimated Glomerular Filt Rate 96 ml/min (>60); GFR (African American) 116 ML/MIN (>60)
[2025-01-10 16:55] LABS: Albumin/Globulin Ratio 1.7 (1.1-1.8); Calcium 9.2 mg/dl (8.4-10.2); Globulin 2.9 g/dL (1.3-3.2); Glucose 94 mg/dl (74-100); Lipase 57 U/L (23-300); Total Protein,Serum 7.7 g/dl (6.3-8.2)
--- NOTE | 2025-01-10 17:39 | CT_ITS ---
PROCEDURE INFORMATION: Exam: CT Abdomen And Pelvis With Contrast Exam date and time: 01/10/2025 5:59 PM Age: 34 years old Clinical indication: Abdominal pain; Additional info: Abd pain TECHNIQUE: Imaging protocol: Computed tomography of the abdomen and pelvis with contrast. Radiation optimization: All CT scans at this facility use at least one of these dose optimization techniques: automated exposure control; mA and/or kV adjustment per patient size (includes targeted exams where dose is matched to clinical indication); or iterative reconstruction. Contrast material: ISOVUE; Contrast volume: 75 ml; Contrast route: IV; COMPARISON: 1. CT ABDOMEN PELVIS W CON 02/17/2021 5:15 AM 2. CR XR CHEST PORTABLE 01/10/2025 4:57 PM FINDINGS: Lungs: See Pleural spaces finding. Pleural spaces: Small bilateral pleural effusions and adjacent posterior lower lobe atelectasis noted. Liver: Stable 12 mm low-density lesion in the dome of the liver on image 10 of series 3 and 20 mm low-density lesion in the superior right lobe of liver on image 17 and a subcentimeter low-density lesion in the superior right lobe of liver on image 15 and 9 mm low-density lesion inferior right lobe of liver on image 41 compatible with benign lesions. Liver otherwise unremarkable. Gallbladder and biliary ducts: Normal. No calcified stones. No ductal dilation. Pancreas: Normal. No ductal dilation. Spleen: Normal. No splenomegaly. Adrenal glands: Normal. No mass. Kidneys and ureters: Nonobstructing right kidney stones largest measuring 5 mm inferiorly have developed in the interval. Benign-appearing cysts on the right redemonstrated without interval change. No follow-up of these lesions advised. Interval development of a 12 mm benign-appearing cyst in the anterior superior left kidney. No follow-up advised. Kidneys and ureters otherwise unremarkable with no obstructing stones or uropathy. Stomach and bowel: Unremarkable. No obstruction. No mucosal thickening. Appendix: No evidence of appendicitis. Intraperitoneal space: Unremarkable. No free air. No significant fluid collection. Vasculature: Unremarkable. No abdominal aortic aneurysm. Lymph nodes: Unremarkable. No enlarged lymph nodes. Urinary bladder: Unremarkable as visualized. Reproductive: Incidental marginally enhancing 21 mm cyst left ovary compatible with physiologic cyst. No follow-up advised. Bones/joints: Unremarkable. No acute fracture. Soft tissues: Unremarkable. IMPRESSION: 1. Small bilateral pleural effusions and adjacent posterior lower lobe atelectasis noted. This is similar to the previous CT of 02/17/2021 and is of uncertain etiology. Advise clinical assessment and follow-up. 2. No other acute abnormalities. COMMENTS: Consistent with the [employer]'s Incidental Findings Committee white paper (J Am Christine Radiol 2018): Any incidental renal lesion less than 1 cm or classified as too small to characterize, or any incidental cystic renal lesion characterized as simple-appearing, is likely benign. No follow-up imaging is recommended for these lesions per consensus recommendations based on imaging criteria.
--- NOTE | 2025-01-10 17:40 | PC.NURSE ---
ROUNDED ON PT, NO NEEDS AT THIS TIME. UPDATED ON POC. CALL LIGHT WITHIN REACH
[2025-01-10 17:41] LABS: Bacteria,Urine 4+ /lpf; RBC,Urine Occasional #/hpf (0-3); Squamous Epithelial Cell,Urine 20-50 #/hpf (0-5)
[2025-01-10] MEDS: SODIUM CHLORIDE 0.9% 10ML SYR (RAD ONLY) 10 ML IV (18:02)
[2025-01-10] MEDS: IOPAMIDOL-370 (76%);100ML BOTTLE 75 ML IV (18:02)
--- NOTE | 2025-01-10 18:51 | PC.NURSE ---
ROUNDED ON PT, NO NEEDS
--- NOTE | 2025-01-10 18:55 | PC.NURSE ---
AMAURY AT BEDSIDE TO UPDATE PT
[2025-01-10] MEDS: FENTANYL 100MCG/2ML VIAL 50 MCG IV (19:09)
[2025-01-10 21:21] LABS: Hepatitis C Ab Qual. W/ RFX NEGATIVE (Negative)
== END 2025-01-10 20:41 | disposition home or self-care (01) ==
PROVIDERS: Nurse Practitioner; Emergency Provider Emergency Medicine; PCP Nurse Practitioner Family
DX: R10.84 Generalized abdominal pain (principal); R11.2 Nausea with vomiting, unspecified; K76.9 Liver disease, unspecified; N83.202 Unspecified ovarian cyst, left side; N20.0 Calculus of kidney; B34.9 Viral infection, unspecified
CPT/HCPCS: 71045; 74177; 80053; 81001; 81025; 83605; 83690; 85025; 86803; 87086; 87389; 96374; 96375; 99285; J0131; J2405; J3010; J7030; Q9967